=== PATIENT | male | born 1950 | race Caucasian/White ===

== ENCOUNTER 2018-09-13 17:33 | Observation (INO) ==
--- NOTE | 2018-09-13 18:38 | Emergency Department Note ---
Disposition Clinical Impression: Hyponatremia Disposition: Still a Patient Condition: Good General Adult HPI - General Chief complaint: ED General Medical Stated complaint: Multiple complaints Time Seen by Provider: 09/13/18 17:54 Source: patient, family Mode of arrival: ambulatory Limitations: no limitations Nursing Notes Reviewed: Yes Vital Signs Reviewed: Yes - History of Present Illness HPI Narrative: Patient is 67-year-old male presenting to [facility] ED for the complaint of left-sided facial weakness, lightheadedness, difficulty with ambulation, bilateral burning in the lower extremities, as well as burning with urination and defecation. Patient states that the symptoms have been progressively worsening over the last 2 months and are intermittent in nature. The patient states that he has had significant life stressors which he feels may be worsening his current symptoms. Onset (ago): month(s) Location: head, face, neck, genitals, buttocks, lower extremity Radiation: non-radiation Pain Severity: severe Pain Scale: 8 Quality: burning, stabbing Consistency: intermittent Improves with: nothing Worsens with: nothing Associated symptoms: Reports: denies other symptoms - Related Data Allergies Allergy/AdvReac Type Severity Reaction Status Date / Time No Known Allergies Allergy Verified 09/13/18 17:38 All systems ED: reviewed and negative except as stated. Constitutional: Reports: chills, weakness. Denies: fever Cardiovascular: Denies: chest pain Respiratory: Denies: dyspnea Gastrointestinal: Reports: nausea. Denies: abdominal pain, vomiting, hematochezia Genitourinary: Denies: hematuria Neurological: Reports: weakness. Denies: headache, numbness, paresthesias Psychiatric: Reports: as per HPI Endocrine: Reports: as per HPI Hematological/Lymphatic: Reports: as per HPI Allergic/Immunologic: Reports: as per HPI Past Medical History - Past Medical History Medical history: Reports: hyperlipidemia, hypertension, TIA Psychiatric history: Reports: no psych history - Social History Smoking Status: Former smoker Smokeless Tobacco Status: No Alcohol use: Reports: none Drug use: Reports: none Physical Exam - General Limitations: no limitations General appearance: alert, in no apparent distress - Head Head exam: atraumatic, normocephalic - Eye Eye exam: Present: normal appearance, PERRL, EOMI. Absent: scleral icterus, conjunctival injection - Chest Chest inspection: Present: normal inspection, symmetric chest wall rise - Respiratory Respiratory exam: Present: normal lung sounds bilaterally. Absent: respiratory distress, accessory muscle use, prolonged expiratory phase - Cardiovascular Cardiovascular exam: Present: regular rate, normal rhythm, normal heart sounds, +S1, +S2. Absent: +S3, +S4 - Abdominal Exam Abdominal exam: Present: soft, Non-Tender, normal bowel sounds. Absent: distention, guarding, rebound, rigidity - Extremities Exam Extremities exam: Absent: pedal edema - Expanded Lower Extremity Exam Lower leg exam: Absent: swelling, ecchymosis Foot/toe exam: Present: normal inspection (Pulse motor and sensation intact in the 4 extremities) - Neurological Exam Neurological exam: Present: alert, oriented X3, other (Strength equal bilaterally, pulse, motor, and sensation are intact in the 4 extremities, finger to nose testing, pronator drift, and [id number] were normal) - Psychiatric Psychiatric exam: Present: normal affect, normal mood - Skin Skin exam: Present: warm, dry, intact Course Course Narrative: Patient history, review systems and physical exam are concerning for potential TIA/CVA versus vitamin/electrolyte deficiency. CT scan head/brain, CBC, BMP, vitamin B6 level to evaluate for intracranial/blood/electrolyte abnormalities. Vital Signs Temperature 98.1 F 09/13/18 17:37 Pulse Rate 102 09/13/18 17:37 Respiratory Rate 16 09/13/18 17:37 Blood Pressure 148/55 09/13/18 17:37 O2 Sat by Pulse Oximetry 97 09/13/18 17:37 Temperature 98.1 F 09/13/18 17:58 Pulse Rate 93 09/13/18 19:39 Respiratory Rate 16 09/13/18 19:39 Blood Pressure 150/87 09/13/18 19:39 O2 Sat by Pulse Oximetry 98 09/13/18 19:39 Oxygen Delivery Oxygen Delivery Room Air Medical Decision Making - MDM Narrative Medical decision making narrative: Patient CT scan of the head negative for intracranial pathology. Patient c ritical laboratory values showed sodium at 119. This was discussed with patient including possible consequences to hyponatremia. Discussion was had at length with patient regarding medical recommendation to be admitted to inpatient medicine for further observation, workup and treatment. Patient acknowledged his understanding and agreed with the plan. - Medical Records Medical records reviewed: Yes I reviewed the patient's medical records. - Lab Data Lab results reviewed: Yes I reviewed the patient's lab results. Result diagrams: 09/13/18 19:46 09/14/18 08:09 Lab Results 09/13/18 09/13/18 Range/Units 19:46 19:46 WBC 8.9 (4.3-11.1) K/mcL RBC 4.49 (4.19-5.50) M/mcL Hgb 13.3 (12.9-16.9) g/dL Hct 37.8 (37.5-50.1) % MCV 84.2 (83.0-100.0) fL MCH 29.6 (28.0-33.3) pg MCHC 35.2 (31.6-35.5) g/dL RDW 11.9 (11.5-14.5) % Plt Count 337 (140-400) K/mcL MPV 9.6 (9.4-12.4) fL Immature Gran % 0.3 (0-4) % Seg Neutrophils % 80.3 % Lymphocytes % 11.4 % Monocytes % 7.5 % Eosinophils % 0.2 % Basophils % 0.3 % Neutrophils # 7.1 (1.6-8.9) K/mcL Lymphocytes # 1.0 (0.6-4.6) K/mcL Monocytes # 0.7 (0.0-1.3) K/mcL Eosinophils # 0.0 (0.0-0.6) K/mcL Basophils # 0.0 (0.0-0.2) K/mcL Sodium 119 L* (136-145) mEq/L Potassium 3.7 (3.5-5.1) mEq/L Chloride 87 L (98-107) mEq/L Carbon Dioxide 20 L (23-29) mEq/L BUN 14 (8-23) mg/dL Creatinine 0.75 (0.70-1.30) mg/dL Est GFR ( Amer) > 60 (> 60) Est GFR (Non-Af Amer) > 60 (> 60) BUN/Creatinine Ratio 19 (6-26) Glucose 112 H (70-105) mg/dL Calculated Osmolality 249 L (280-300) Calcium 9.5 (8.6-10.3) mg/dL - Radiology Data Radiology results reviewed: Yes I reviewed the patient's radiology results. - EKG Data EKG #1 EKG attestation: Yes I reviewed and interpreted this EKG. EKG results narrative: Patient EKG shows a normal sinus rhythm with a first degree AV block and right bundle branch block with a ventricular rate of 97 bpm. QT/QTc interval of 371/472 respectively and QRS duration of 138 ms. Rate, rhythm, and axis otherwise appear normal. There are no ST segment depressions, elevations, abnormal T-wave inversions or other signs of acute ischemic change. The EKG report performed today is generally consistent with previous EKG performed on February 162013.
--- NOTE | 2018-09-13 19:03 | Emergency Department Note ---
Disposition Clinical Impression: Hyponatremia Disposition: Still a Patient Condition: Good Referrals: Chandana Vasquez MD [Primary Care Provider] - Forms: ED Satisfaction Letter, Work/School Release General Adult HPI - General Chief complaint: ED General Medical Stated complaint: Multiple complaints Time Seen by Provider: 09/13/18 17:54 Source: patient, family Mode of arrival: ambulatory Limitations: no limitations - History of Present Illness Location: head, face, neck, genitals, buttocks, lower extremity Pain Scale: 8 Quality: burning, stabbing Improves with: nothing Worsens with: nothing Associated symptoms: Reports: denies other symptoms - Related Data Allergies Allergy/AdvReac Type Severity Reaction Status Date / Time No Known Allergies Allergy Verified 09/13/18 17:38 Constitutional: Reports: chills, weakness. Denies: fever Cardiovascular: Denies: chest pain Respiratory: Denies: dyspnea Gastrointestinal: Reports: nausea. Denies: abdominal pain, vomiting, hematochezia Genitourinary: Denies: hematuria Neurological: Reports: weakness. Denies: headache, numbness, paresthesias Past Medical History - Past Medical History Medical history: Reports: hyperlipidemia, hypertension, TIA Psychiatric history: Reports: no psych history - Social History Smoking Status: Former smoker Smokeless Tobacco Status: No Alcohol use: Reports: none Drug use: Reports: none Physical Exam - General Limitations: no limitations General appearance: alert, in no apparent distress Course Vital Signs Temperature 98.1 F 09/13/18 17:37 Pulse Rate 102 09/13/18 17:37 Respiratory Rate 16 09/13/18 17:37 Blood Pressure 148/55 09/13/18 17:37 O2 Sat by Pulse Oximetry 97 09/13/18 17:37 Temperature 98.1 F 09/13/18 17:58 Pulse Rate 93 09/13/18 19:39 Respiratory Rate 16 09/13/18 19:39 Blood Pressure 150/87 09/13/18 19:39 O2 Sat by Pulse Oximetry 98 09/13/18 19:39 Oxygen Delivery Oxygen Delivery Room Air Medical Decision Making - MDM Narrative Medical decision making narrative: Patient was found have a sodium level of 119 with no other electrolyte abnormalities. We will start him on normal saline. Patient will need to be admitted. This could help explain some of his neurological symptoms. - Medical Records Medical records reviewed: Yes I reviewed the patient's medical records. - Lab Data Lab results reviewed: Yes I reviewed the patient's lab results. Result diagrams: 09/13/18 19:46 09/13/18 19:46 Lab Results 09/13/18 09/13/18 Range/Units 19:46 19:46 WBC 8.9 (4.3-11.1) K/mcL RBC 4.49 (4.19-5.50) M/mcL Hgb 13.3 (12.9-16.9) g/dL Hct 37.8 (37.5-50.1) % MCV 84.2 (83.0-100.0) fL MCH 29.6 (28.0-33.3) pg MCHC 35.2 (31.6-35.5) g/dL RDW 11.9 (11.5-14.5) % Plt Count 337 (140-400) K/mcL MPV 9.6 (9.4-12.4) fL Immature Gran % 0.3 (0-4) % Seg Neutrophils % 80.3 % Lymphocytes % 11.4 % Monocytes % 7.5 % Eosinophils % 0.2 % Basophils % 0.3 % Neutrophils # 7.1 (1.6-8.9) K/mcL Lymphocytes # 1.0 (0.6-4.6) K/mcL Monocytes # 0.7 (0.0-1.3) K/mcL Eosinophils # 0.0 (0.0-0.6) K/mcL Basophils # 0.0 (0.0-0.2) K/mcL Sodium 119 L* (136-145) mEq/L Potassium 3.7 (3.5-5.1) mEq/L Chloride 87 L (98-107) mEq/L Carbon Dioxide 20 L (23-29) mEq/L BUN 14 (8-23) mg/dL Creatinine 0.75 (0.70-1.30) mg/dL Est GFR ( Amer) > 60 (> 60) Est GFR (Non-Af Amer) > 60 (> 60) BUN/Creatinine Ratio 19 (6-26) Glucose 112 H (70-105) mg/dL Calculated Osmolality 249 L (280-300) Calcium 9.5 (8.6-10.3) mg/dL - Radiology Data Radiology results reviewed: Yes I reviewed the patient's radiology results. Attestation Statement - Attestation Attestation: I examined this patient and my medical decision-making was reviewed with the Resident Physician. I agree with the documented findings, disposition and treatment plan as described except to the extent set forth below. 67-year-old male since emergency room for bilateral leg pain. States he has had pain in his legs for 3-5 months minimum. He describes it as a tingling and numbness from the knees down to the feet. Comes and goes. When asked why he came to the ER today he states it is chronic his legs look that for the pain. He also intermittently states that he has left-sided facial numbness that seems very lateral. He states the pain sometimes in the left shoulder as well as down the midline of the upper back region. On exam, his legs look normal. Pulses intact. There is no rashes. No neuro deficits anywhere. Cranial nerves are intact. Normal cerebellar exam. We will check screening lab work. We will do a CT of the head just to make sure that there is no acute process taking place. I
[2018-09-13 20:00] LABS: Basophils % 0.3 %; Eosinophils % 0.2 %; Hematocrit 37.8 % (37.5-50.1); Hemoglobin 13.3 g/dL (12.9-16.9); Immature Granulocytes % 0.3 % (0-4); Lymphocytes % 11.4 %; Mean Corpuscular HGB Conc 35.2 g/dL (31.6-35.5); Mean Corpuscular Hemoglobin 29.6 pg (28.0-33.3); Mean Corpuscular Volume 84.2 fL (83.0-100.0); Mean Platelet Volume 9.6 fL (9.4-12.4); Monocytes # 0.7 K/mcL (0.0-1.3); Monocytes % 7.5 %; Neutrophils # 7.1 K/mcL (1.6-8.9); Platelet Count 337 K/mcL (140-400); Red Blood Count 4.49 M/mcL (4.19-5.50); Red Cell Distribution Width 11.9 % (11.5-14.5); Segmented Neutrophils % 80.3 %
[2018-09-13 20:30] LABS: BUN/Creatinine Ratio 19 (6-26); Blood Urea Nitrogen 14 mg/dL (8-23); Calcium 9.5 mg/dL (8.6-10.3); Carbon Dioxide 20 mEq/L (23-29); Chloride 87 mEq/L (98-107); Glucose 112 mg/dL (70-105); Osmolality,Calculated 249 (280-300); Potassium 3.7 mEq/L (3.5-5.1); Sodium 119 mEq/L (136-145); eGFR For Non-African Americans > 60 (> 60)
[2018-09-13] MEDS: 0.9 % Sodium Chloride 1,000 ML IVC SCH ×2 (21:18→22:37)
--- NOTE | 2018-09-13 22:35 | Internal Med History&Physical ---
Date of Encounter: 09/13/18 Time of Encounter: 22:32 Internal Medicine - H&P: HPI Chief complaint: fatigue Admitted From: Home Plans for Post Hospital Care: Home History of present illness: Mr. Lozada is a 67 year old male with a history of hypertension, hyperlipidemia and TIAs who presents to the emergency room with a complaint of 2 weeks of increasingly progressive fatigue and generalized malaise. He denies any speci fic complaints such as chest pain or headaches per se however he says over the last 2 weeks he has lost his appetite, he is been nauseated and vomiting intermittently and today had an episode of large volume diarrhea. He does report adherence to his medications in spite of his symptoms. Information obtained from the is that every time he stands up he feels lightheaded and he has lost exercise tolerance now only being able to walk short distances due to fatigue. On arrival here he appeared clinically stable and his hemodynamics were within normal limits. Comprehensive blood work was done which was grossly unremarkable except the finding of a serum sodium of 119. He was then started on IV saline and is admitted for ongoing treatment and management. At this time he says he just feels tired and feels like "crap" but denies fever and chills. He does report having dysuria of recent. I asked him about any new medications over the last 2 weeks which he says he has not had however today he was started on sertraline because he has PCP felt and may be secondary to stress and depression; his symptoms started 2 weeks ago. All systems reviewed and negative except as above. Denies any surgeries in the past. Denies smoking history and illicit drug use. Liver failure in daughter; rest of family history is noncontributory.. Note: The patient states that he will sign himself out from medical care tomorrow morning as his daughter is currently dying in the critical care unit at [facility] from liver cirrhosis and may not live over the next 24 hours but he is willing to stay overnight to try to correct his serum sodium. Past Med Surg Social Fam HX - Past Medical History Medical history: hyperlipidemia, hypertension, TIA Psychiatric history: no psych history - Social History Smoking Status: Former smoker Smokeless Tobacco Status: No Alcohol use: none Drug use: none Internal Medicine - H&P: Meds Buspirone HCl [Buspar] 10 mg PO BID 09/13/18 [History] Lisinopril/Hydrochlorothiazide [Zestoretic 20-25 mg Tablet] 1 tab PO DAILY 09/13/18 [History] Multivit-Min/FA/Lycopen/Lutein [A Thru Z Select Men 50+ Tablet] 1 tab PO DAILY 09/13/18 [History] Pravastatin Sodium [Pravachol] 40 mg PO QPM 09/13/18 [History] Sertraline [Zoloft] 50 mg PO DAILY 09/13/18 [History] Tamsulosin [Flomax] 0.4 mg PO DAILY 09/13/18 [History] Allergy/AdvReac Type Severity Reaction Status Date / Time No Known Allergies Allergy Verified 09/13/18 17:38 All Systems PM: A 10-system review of systems was performed and is negative for pertinent findings except as documented above in the HPI. - Constitutional Vitals: Temp Pulse Resp BP Pulse Ox 98.1 F 93 12 161/91 98 09/13/18 17:58 09/13/18 19:39 09/13/18 21:45 09/13/18 21:45 09/13/18 19:39 Exam: Vitals: Reviewed General: Well-developed white male lying comfortably in bed in no acute distress Skin: Warm and supple HEENT: Slightly dry oral mucous membranes. Mild conjunctivae pallor. Neck: No lymphadenopathy. No JVD. No carotid bruits. No palpable thyroid. Chest: Normal thoracic expansion. Normal breath sounds. Clear to auscultation. Heart: Normal S1 & S2; rhythmic. No rubs or murmurs. Abdomen: Non-distended, soft and non-tender to palpation. No peritoneal reaction. Liver is normal in size. Spleen is not palpable. Extremities: No clubbing, cyanosis or edema. No calf tenderness. Normal distal pulses. Neurological: Awake, alert and oriented to person, place and time. No focal deficits. Psych: Affect appropriate. Internal Med - H&P Results - Labs CBC & Chem 7: 09/13/18 19:46 09/13/18 19:46 Labs: Short CBC 09/13/18 Range/Units 19:46 WBC 8.9 (4.3-11.1) K/mcL Hgb 13.3 (12.9-16.9) g/dL Hct 37.8 (37.5-50.1) % Plt Count 337 (140-400) K/mcL Neutrophils # 7.1 (1.6-8.9) K/mcL BMP 09/13/18 19:46 Sodium 119 L* Potassium 3.7 Chloride 87 L Carbon Dioxide 20 L BUN 14 Creatinine 0.75 Glucose 112 H Calcium 9.5 - Impressions ITS Impressions Head CT 09/13/18 19:00 IMPRESSION: No acute intracranial hemorrhage or mass effect. D/ / Cornelius Schwab MD / Cornelius Schwab MD Interpreting Provider: Cornelius Schwab MD - Assessment and plan (1) Hyponatremia Current Visit: Yes Status: Acute Assessment and plan: Unclear etiology. Spurious hypoNa ruled out with normal glucose. Will check lipids. Concerned for a multifactorial etiology based on poor oral intake over the last 2 weeks and GI losses in addition to using HCTZ. Will obtain urine osm and lytes. Start IV NS. Check BMP q4hrs. (2) Hypertension Current Visit: Yes Status: Acute Assessment and plan: HCTZ discontinued for now. Will continue on lisinopril alone at this time. Qualifiers: Hypertension type: essential hypertension Qualified Code(s): I10 - Essential (primary) hypertension (3) Hyperlipidemia Current Visit: Yes Status: Acute Assessment and plan: Will continue statin therapy. Qualifiers: Qualified Code(s): E78.5 - Hyperlipidemia, unspecified (4) Depression Current Visit: Yes Status: Acute Assessment and plan: Will hold sertraline as it can cause hyponatremia and SIADH. Continue bupropion. Qualifiers: Depression Type: unspecified Qualified Code(s): F32.9 - Major depressive disorder, single episode, unspecified (5) DVT prophylaxis Current Visit: Yes Status: Acute Assessment and plan: SubQ heparin. - Time Spent With Patient Total time spent is greater than 50% in coordination of care (as documented) at patient's floor/unit and/or counseling patient: Greater than 35 minutes
[2018-09-13 22:50] LABS: Bilirubin,Urine Negative (Negative); Blood,Urine Negative (Negative); Clarity,Urine Clear (Clear); Color,Urine Yellow (Yellow); Glucose,Urine (UA) Normal (Normal); Ketones,Urine 80 mg/dL (Negative); Leukocyte Esterase,Urine Negative (Negative); Nitrite,Urine Negative (Negative); PH,Urine 6.5 pH Units (5.0-8.0); Protein,Urine Negative (Neg-Trace); Specific Gravity,Urine 1.014 (1.010-1.025); Urobilinogen,Urine Normal (Normal)
[2018-09-14 00:41] LABS: BUN/Creatinine Ratio 15 (6-26); Blood Urea Nitrogen 11 mg/dL (8-23); Calcium 8.9 mg/dL (8.6-10.3); Carbon Dioxide 20 mEq/L (23-29); Chloride 94 mEq/L (98-107); Chol/HDL Ratio 2.5 (0-4.9); Glucose 113 mg/dL (70-105); Osmolality,Calculated 260 (280-300); Potassium 3.8 mEq/L (3.5-5.1); Sodium 125 mEq/L (136-145); eGFR For Non-African Americans > 60 (> 60)
[2018-09-14] MEDS ORDERED: 0.9 % Sodium Chloride 1,000 ML IVC SCH (01:06)
--- NOTE | 2018-09-14 01:12 | Event Note ---
Date of Encounter: 09/14/18 Time of Encounter: 01:11 Addendum: The patient's orthostatics are positive as evidenced by a drop in systolic to 99mmHg while standing from 151 when supine. His sodium has also increased to 125 from 119. Will decrease the rate of infusion to 75ml/hr from 125. Next BMP will be in 4 hours.
[2018-09-14 05:20] LABS: BUN/Creatinine Ratio 16 (6-26); Blood Urea Nitrogen 10 mg/dL (8-23); Calcium 8.6 mg/dL (8.6-10.3); Carbon Dioxide 20 mEq/L (23-29); Chloride 98 mEq/L (98-107); Glucose 103 mg/dL (70-105); Osmolality,Calculated 265 (280-300); Potassium 3.7 mEq/L (3.5-5.1); Sodium 128 mEq/L (136-145); eGFR For Non-African Americans > 60 (> 60)
[2018-09-14] MEDS ORDERED: *HR* Heparin 5,000 UNIT/ML VIAL SQ SCH (06:00)
[2018-09-14 07:20] VITALS: BP 161/84
--- NOTE | 2018-09-14 08:13 | Electrocardiograph Report ---
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
[2018-09-14 08:47] LABS: BUN/Creatinine Ratio 14 (6-26); Blood Urea Nitrogen 9 mg/dL (8-23); Calcium 8.7 mg/dL (8.6-10.3); Carbon Dioxide 20 mEq/L (23-29); Chloride 98 mEq/L (98-107); Glucose 101 mg/dL (70-105); Osmolality,Calculated 267 (280-300); Potassium 3.8 mEq/L (3.5-5.1); Sodium 129 mEq/L (136-145); eGFR For Non-African Americans > 60 (> 60)
[2018-09-14] MEDS ORDERED: Lisinopril 20 MG TABLET PO SCH (09:00)
--- NOTE | 2018-09-14 10:43 | Internal Med Progress Note ---
Hospitalist Progress Note - Exam Vitals: Temp Pulse Resp BP Pulse Ox 98.1 F 86 19 161/84 97 09/14/18 07:18 09/14/18 07:18 09/14/18 07:18 09/14/18 07:18 09/14/18 07:18 - Assessment and Plan (1) Hyponatremia Current Visit: Yes Status: Acute (2) Depression Current Visit: Yes Status: Acute (3) Hypertension Current Visit: Yes Status: Acute (4) Hyperlipidemia Current Visit: Yes Status: Acute (5) DVT prophylaxis Current Visit: Yes Status: Acute - Time Spent with Patient Total time spent is greater than 50% in coordination of care (as documented) at patient's floor/unit and/or counseling patient: Internal Medicine: Result - Labs CBC & Chem 7: 09/13/18 19:46 09/14/18 04:48 Labs: Short CBC 09/13/18 Range/Units 19:46 WBC 8.9 (4.3-11.1) K/mcL Hgb 13.3 (12.9-16.9) g/dL Hct 37.8 (37.5-50.1) % Plt Count 337 (140-400) K/mcL Neutrophils # 7.1 (1.6-8.9) K/mcL BMP 09/13/18 09/14/18 09/14/18 19:46 00:10 04:48 Sodium 119 L* 125 L 128 L Potassium 3.7 3.8 3.7 Chloride 87 L 94 L 98 Carbon Dioxide 20 L 20 L 20 L BUN 14 11 10 Creatinine 0.75 0.72 0.63 L Glucose 112 H 113 H 103 Calcium 9.5 8.9 8.6 Urine 09/13/18 Range/Units 22:34 Urine Color Yellow (Yellow) Urine Clarity Clear (Clear) Urine pH 6.5 (5.0-8.0) pH Units Ur Specific [place] 1.014 (1.010-1.025) Urine Protein Negative (Neg-Trace) mg/dL Urine Glucose (UA) Normal (Normal) mg/dL - Impressions Impressions Head CT 09/13/18 19:00 IMPRESSION: No acute intracranial hemorrhage or mass effect. D/ / Cornelius Schwab MD / Cornelius Schwab MD Interpreting Provider: Cornelius Schwab MD Consult Discharge Plan - Plan Referrals: Chandana Vasquez MD [Primary Care Provider] - (2) Depression Qualifiers: Depression Type: unspecified Qualified Code(s): F32.9 - Major depressive disorder, single episode, unspecified (3) Hypertension Qualifiers: Hypertension type: essential hypertension Qualified Code(s): I10 - Essential (primary) hypertension (4) Hyperlipidemia Qualifiers: Qualified Code(s): E78.5 - Hyperlipidemia, unspecified
--- NOTE | 2018-09-14 15:05 | Discharge Summary ---
Date of Encounter: 09/14/18 Time of Encounter: 00:00 - Discharge Diagnosis (1) Hyponatremia Priority: Primary Status: Acute Hospital course: Patient is a 67-year-old male with past medical history significant for hypertension, hyperlipidemia, TIAs and recently newly diagnosed depression who presents to the emergency room with a complaint of 2 weeks of increasingly progressive fatigue and generalized malaise. Patient states that over the last 2 weeks he has lost his appetite, he is been nauseated and vomiting intermittently and today had an episode of large volume diarrhea. Patient reported of being started on sertraline for stress and depression; his symptoms started 2 weeks ago. In the ER, patient was found to be hyponatremic with a sodium of 119. She was admitted to medical surgical floor for management of hyponatremia. Patient however after being admitted to the medical floor decided to sign out AGAINST MEDICAL ADVICE. Patient was never seen by myself but was evaluated by nocturnalist. Time spent discussing smoking cessation with patient: 3 to 10 minutes - Time Spent with Patient Total time spent providing and/or coordinating discharge services: - Discharge Medications Home Medications: Buspirone HCl [Buspar] 10 mg PO BID 09/13/18 [History] Lisinopril/Hydrochlorothiazide [Zestoretic 20-25 mg Tablet] 1 tab PO DAILY 09/13/18 [History] Multivit-Min/FA/Lycopen/Lutein [A Thru Z Select Men 50+ Tablet] 1 tab PO DAILY 09/13/18 [History] Pravastatin Sodium [Pravachol] 40 mg PO QPM 09/13/18 [History] Sertraline [Zoloft] 50 mg PO DAILY 09/13/18 [History] Tamsulosin [Flomax] 0.4 mg PO DAILY 09/13/18 [History] Allergies/Adverse Reactions: Allergy/AdvReac Type Severity Reaction Status Date / Time No Known Allergies Allergy Verified 09/13/18 17:38 Date of admission: 09/13/18 21:14 Primary care physician: Chandana Vasquez MD - Constitutional Vitals: Temp Pulse Resp BP Pulse Ox 98.1 F 86 19 161/84 97 09/14/18 07:18 09/14/18 07:18 09/14/18 07:18 09/14/18 07:18 09/14/18 07:18 Exam: none - Patient Status Disposition: Left Against Medical Advice Condition: Good - Discharge Instructions Follow Up With: Chandana Vasquez MD [Primary Care Provider] -
== END 2018-09-14 08:51 | disposition left against medical advice (07) ==
LOC: 2ANU 17:33 → EMEROOARM 17:33 → SUATTDRO 21:14 → 2ANU 22:38
PROVIDERS: ADMIT Internal Medicine; ATTEND Hospitalist

== ENCOUNTER 2018-09-20 11:07 | Inpatient (IN) ==
--- NOTE | 2018-09-20 11:36 | Emergency Department Note ---
Addendum entered and electronically signed by Cheryl Medina 09/20/18 20:51: Original Note: Disposition Clinical Impression: Hyponatremia, Burning sensation of feet Disposition: Admitted As Inpatient Condition: Fair General Adult HPI - General Chief complaint: ED Recheck/Abnormal Lab/Rx Stated complaint: "abnormal labs/low sodium" Time Seen by Provider: 09/20/18 11:13 Source: patient Limitations: no limitations Nursing Notes Reviewed: Yes Vital Signs Reviewed: Yes - History of Present Illness HPI Narrative: Patient's 68-year-old male with history of hypertension who presents the emergency department after obtaining labs ordered by his PCP with significant hyponatremia to 118. Patient was recently admitted for similar lab findings but left AMA as his daughter is dying of liver failure. He does admit some nausea without vomiting, currently resolved as well as bilateral foot tingling and dysuria. He otherwise notes approximately a pound weight loss over the past month as he feels no desire to eat. He states he drinks approximately 3, 16 ounce water bottles per day. He denies current alcoholism that he does have a history in the past. He denies any headache, chest pain, shortness of breath, abdominal pain, hematuria, urinary frequency. Pain Scale: 7 - Related Data Home Medications Medication Instructions Recorded Confirmed Buspirone HCl [Buspar] 10 mg PO BID 09/13/18 09/20/18 Lisinopril/Hydrochlorothiazide 1 tab PO DAILY 09/13/18 09/20/18 [Zestoretic 20-25 mg Tablet] Multivit-Min/FA/Lycopen/Lutein [A 1 tab PO DAILY 09/13/18 09/20/18 Thru Z Select Men 50+ Tablet] Pravastatin Sodium [Pravachol] 40 mg PO QPM 09/13/18 09/20/18 Sertraline [Zoloft] 50 mg PO DAILY 09/13/18 09/13/18 Tamsulosin [Flomax] 0.4 mg PO DAILY 09/13/18 09/20/18 Allergies Allergy/AdvReac Type Severity Reaction Status Date / Time No Known Allergies Allergy Verified 09/20/18 13:59 All systems ED: reviewed and negative except as stated. Review of Systems: As Per HPI Past Medical History - Past Medical History Attestation: Yes The following information was validated with the patient. Source: patient Medical history: Reports: hyperlipidemia, hypertension, TIA Psychiatric history: Reports: no psych history - Social History Smoking Status: Former smoker Smokeless Tobacco Status: No Alcohol use: Reports: none Drug use: Reports: none Physical Exam - General Limitations: no limitations General appearance: alert - Head Head exam: atraumatic, normocephalic - ENT ENT exam: mucous membranes dry - Chest Chest inspection: Present: normal inspection - Respiratory Respiratory exam: Present: normal lung sounds bilaterally. Absent: respiratory distress, accessory muscle use - Cardiovascular Cardiovascular exam: Present: regular rate, normal rhythm, normal heart sounds - Abdominal Exam Abdominal exam: Present: soft, Non-Tender, normal bowel sounds. Absent: tenderness, distention, guarding, rebound, rigidity - Extremities Exam Extremities exam: Present: normal inspection. Absent: pedal edema - Neurological Exam Neurological exam: Present: alert, oriented X3 - Psychiatric Psychiatric exam: Present: normal affect, normal mood - Skin Skin exam: Present: warm, dry, intact Course Course Narrative: Patient with sodium of 118, down from recent draw of 125. He was admitted for similar lab results but left AMA overnight as his daughter is dying of liver failure. Patient denies alcoholism or excessive intake therefore less likely be beer potomania or psychogenic polydipsia. Otherwise patient appears slightly dehydrated. We will obtain a other basic lab work including CBC, UA and he will likely require an admission. We will begin gentle rehydration of normal saline at 100 mils per hour. - Reevaluation(s) Reevaluation #1: Admitting physician, Dr. Diaz reports the patient is now suicidal. He will determine the patient's need for pink slip. We will have sitter placed. Time: 14:17 Vital Signs Temperature 99.2 F 09/20/18 11:10 Pulse Rate 103 09/20/18 11:10 Respiratory Rate 16 09/20/18 11:10 Blood Pressure 129/73 09/20/18 11:10 O2 Sat by Pulse Oximetry 98 09/20/18 11:10 Temperature 99.2 F 09/20/18 11:19 Pulse Rate 104 09/20/18 14:11 Respiratory Rate 21 09/20/18 14:11 Blood Pressure 140/84 09/20/18 14:11 O2 Sat by Pulse Oximetry 98 09/20/18 14:11 Oxygen Delivery Oxygen Delivery Room Air Medical Decision Making - MDM Narrative Medical decision making narrative: Patient's hyponatremic without obvious source at this time. Appears slightly hypovolemic therefore IV hydration started with 100 mL normal saline per hour. At this point no need for hypertonic saline as the patient has no history of seizures and is not currently seizing. Denies alcohol or excessive water intake. CBC and UA unremarkable. Patient will require admission for continued evaluation and monitoring of sodium correction. Patient agrees with and understands course of treatment plan including plan for admission. Discussed ca se with hospitalist, Dr. Tripathi who has accepted the patient for admission. Will obtain CXR prior to going to the floor. All questions answered. - Medical Records Medical records reviewed: Yes I reviewed the patient's medical records. - Lab Data Lab results reviewed: Yes I reviewed the patient's lab results. Result diagrams: 09/20/18 11:53 Lab Results 09/20/18 09/20/18 Range/Units 11:53 12:23 WBC 8.2 (4.3-11.1) K/mcL RBC 4.44 (4.19-5.50) M/mcL Hgb 13.1 (12.9-16.9) g/dL Hct 36.1 L (37.5-50.1) % MCV 81.3 L (83.0-100.0) fL MCH 29.5 (28.0-33.3) pg MCHC 36.3 H (31.6-35.5) g/dL RDW 11.9 (11.5-14.5) % Plt Count 324 (140-400) K/mcL MPV 9.9 (9.4-12.4) fL Immature Gran % 0.2 (0-4) % Seg Neutrophils % 77.1 % Lymphocytes % 13.8 % Monocytes % 8.3 % Eosinophils % 0.2 % Basophils % 0.4 % Neutrophils # 6.3 (1.6-8.9) K/mcL Lymphocytes # 1.1 (0.6-4.6) K/mcL Monocytes # 0.7 (0.0-1.3) K/mcL Eosinophils # 0.0 (0.0-0.6) K/mcL Basophils # 0.0 (0.0-0.2) K/mcL Urine Color Yellow (Yellow) Urine Clarity Clear (Clear) Urine pH 6.5 (5.0-8.0) pH Units Ur Specific [place] 1.009 L (1.010-1.025) Urine Protein Negative (Neg-Trace) mg/dL Urine Glucose (UA) Normal (Normal) mg/dL Urine Ketones 40 H (Negative) mg/dL Urine Blood Negative (Negative) Urine Nitrite Negative (Negative) Urine Bilirubin Negative (Negative) Urine Urobilinogen Normal (Normal) mg/dL Ur Leukocyte Esterase Negative (Negative) Ur Culture Indicated? NO (NO) - EKG Data EKG #1 EKG attestation: Yes I reviewed and interpreted this EKG. EKG results narrative: Sinus tachycardia rate of 105. KS 204, QRS 136, QT 360, QTC 476. Left axis. Inverted T waves in aVR, V1. No evidence of ST elevation. When compared with 09/13/2018 there is no significant difference.
[2018-09-20] MEDS: 0.9 % Sodium Chloride 1,000 ML IVC SCH ×2 (12:01→16:58)
[2018-09-20 12:22] LABS: Basophils % 0.4 %; Eosinophils % 0.2 %; Hematocrit 36.1 % (37.5-50.1); Hemoglobin 13.1 g/dL (12.9-16.9); Immature Granulocytes % 0.2 % (0-4); Lymphocytes # 1.1 K/mcL (0.6-4.6); Lymphocytes % 13.8 %; Mean Corpuscular HGB Conc 36.3 g/dL (31.6-35.5); Mean Corpuscular Hemoglobin 29.5 pg (28.0-33.3); Mean Corpuscular Volume 81.3 fL (83.0-100.0); Mean Platelet Volume 9.9 fL (9.4-12.4); Monocytes # 0.7 K/mcL (0.0-1.3); Monocytes % 8.3 %; Neutrophils # 6.3 K/mcL (1.6-8.9); Platelet Count 324 K/mcL (140-400); Red Blood Count 4.44 M/mcL (4.19-5.50); Red Cell Distribution Width 11.9 % (11.5-14.5); Segmented Neutrophils % 77.1 %
[2018-09-20 12:49] LABS: Bilirubin,Urine Negative (Negative); Blood,Urine Negative (Negative); Clarity,Urine Clear (Clear); Color,Urine Yellow (Yellow); Glucose,Urine (UA) Normal (Normal); Ketones,Urine 40 mg/dL (Negative); Leukocyte Esterase,Urine Negative (Negative); Nitrite,Urine Negative (Negative); PH,Urine 6.5 pH Units (5.0-8.0); Protein,Urine Negative (Neg-Trace); Specific Gravity,Urine 1.009 (1.010-1.025); Urobilinogen,Urine Normal (Normal)
--- NOTE | 2018-09-20 13:03 | Emergency Department Note ---
Disposition Clinical Impression: Hyponatremia Disposition: Admitted As Inpatient Forms: ED Satisfaction Letter General Adult HPI - General Chief complaint: ED Recheck/Abnormal Lab/Rx Stated complaint: "abnormal labs/low sodium" Time Seen by Provider: 09/20/18 11:13 Source: patient Limitations: no limitations - History of Present Illness Pain Scale: 7 - Related Data Home Medications Medication Instructions Recorded Confirmed Buspirone HCl [Buspar] 10 mg PO BID 09/13/18 09/13/18 Lisinopril/Hydrochlorothiazide 1 tab PO DAILY 09/13/18 09/13/18 [Zestoretic 20-25 mg Tablet] Multivit-Min/FA/Lycopen/Lutein [A 1 tab PO DAILY 09/13/18 09/13/18 Thru Z Select Men 50+ Tablet] Pravastatin Sodium [Pravachol] 40 mg PO QPM 09/13/18 09/13/18 Sertraline [Zoloft] 50 mg PO DAILY 09/13/18 09/13/18 Tamsulosin [Flomax] 0.4 mg PO DAILY 09/13/18 09/13/18 Allergies Allergy/AdvReac Type Severity Reaction Status Date / Time No Known Allergies Allergy Verified 09/20/18 11:11 Past Medical History - Past Medical History Medical history: Reports: hyperlipidemia, hypertension, TIA Psychiatric history: Reports: no psych history - Social History Smoking Status: Former smoker Smokeless Tobacco Status: No Alcohol use: Reports: none Drug use: Reports: none Physical Exam - General Limitations: no limitations General appearance: alert Course Vital Signs Temperature 99.2 F 09/20/18 11:10 Pulse Rate 103 09/20/18 11:10 Respiratory Rate 16 09/20/18 11:10 Blood Pressure 129/73 09/20/18 11:10 O2 Sat by Pulse Oximetry 98 09/20/18 11:10 Temperature 99.2 F 09/20/18 11:19 Pulse Rate 112 09/20/18 12:38 Respiratory Rate 16 09/20/18 12:38 Blood Pressure 156/88 09/20/18 12:38 O2 Sat by Pulse Oximetry 100 09/20/18 12:38 Oxygen Delivery Oxygen Delivery Room Air Medical Decision Making - Lab Data Result diagrams: 09/20/18 11:53 Lab Results 09/20/18 09/20/18 Range/Units 11:53 12:23 WBC 8.2 (4.3-11.1) K/mcL RBC 4.44 (4.19-5.50) M/mcL Hgb 13.1 (12.9-16.9) g/dL Hct 36.1 L (37.5-50.1) % MCV 81.3 L (83.0-100.0) fL MCH 29.5 (28.0-33.3) pg MCHC 36.3 H (31.6-35.5) g/dL RDW 11.9 (11.5-14.5) % Plt Count 324 (140-400) K/mcL MPV 9.9 (9.4-12.4) fL Immature Gran % 0.2 (0-4) % Seg Neutrophils % 77.1 % Lymphocytes % 13.8 % Monocytes % 8.3 % Eosinophils % 0.2 % Basophils % 0.4 % Neutrophils # 6.3 (1.6-8.9) K/mcL Lymphocytes # 1.1 (0.6-4.6) K/mcL Monocytes # 0.7 (0.0-1.3) K/mcL Eosinophils # 0.0 (0.0-0.6) K/mcL Basophils # 0.0 (0.0-0.2) K/mcL Urine Color Yellow (Yellow) Urine Clarity Clear (Clear) Urine pH 6.5 (5.0-8.0) pH Units Ur Specific [place] 1.009 L (1.010-1.025) Urine Protein Negative (Neg-Trace) mg/dL Urine Glucose (UA) Normal (Normal) mg/dL Urine Ketones 40 H (Negative) mg/dL Urine Blood Negative (Negative) Urine Nitrite Negative (Negative) Urine Bilirubin Negative (Negative) Urine Urobilinogen Normal (Normal) mg/dL Ur Leukocyte Esterase Negative (Negative) Ur Culture Indicated? NO (NO) Attestation Statement - Attestation Attestation: I examined this patient and my medical decision-making was reviewed with the Resident Physician. I agree with the documented findings, disposition and treatment plan as described except to the extent set forth below. 68 year old male presents to ED with complaints of abnormal labs with a sodium of 118. His baseline is at 126 and states that he has bene low in the past and was most recently admitted to the hospital for this condition and left AMA because his daughter is in ciritical condition and dying. Luc[facility] will be admitted to the [facility]. He denies etoh, seizures, nausea/vomitting, hEADACHE, and or AMS.
[2018-09-20] MEDS ORDERED: *HR* Promethazine 25 MG/ML VIAL IVP PRN (13:59)
[2018-09-20] MEDS ORDERED: Ondansetron 4 MG/2 ML VIAL IVP PRN (13:59)
[2018-09-20] MEDS ORDERED: traMADol 50 MG TABLET PO PRN (13:59)
[2018-09-20] MEDS ORDERED: Naloxone 0.4 MG/ML INJ IVP PRN (13:59)
--- NOTE | 2018-09-20 14:44 | Internal Med History&Physical ---
Date of Encounter: 09/20/18 Time of Encounter: 14:00 Internal Medicine - H&P: HPI Chief complaint: Generalized weakness and lethargic Admitted From: Emergency Dept Plans for Post Hospital Care: Home History of present illness: Mr. Lozada is a 68 year old male with known past medical history of depression, hypertension, hyperlipidemia and TIAs who was recently admitted in this hospital for severe hyponatremia due to dehydration who left against medical advice since he has to take care of his dying daughter. Today his primary care doctor did check his BNP his sodium came back as 118, patient was sent to ER for further care. I talked to the patient in the ER he did complaining about being lethargic weak and tired all the time from last couple of weeks. His oral intake also diminished. Feeling nauseated but denied any vomiting since. He he does look severely depressed, during my conversation he suddenly became tearful about his daughter's situation. Patient did mention he had suicidal ideation's couple of times within last one week with a plan killing himself by shooting with the gun. He denied any suicidal though at the moment. Past Med Surg Social Fam HX - Past Medical History Medical history: hyperlipidemia, hypertension, TIA Psychiatric history: no psych history - Social History Smoking Status: Former smoker Smokeless Tobacco Status: No Alcohol use: none Drug use: none - Family History Mother Adopted: No Living Status: Hx Family Cardiac Disorders: Yes Father Adopted: No Living Status: Hx Family Cardiac Disorders: Yes Internal Medicine - H&P: Meds Buspirone HCl [Buspar] 10 mg PO BID 09/13/18 [History] Lisinopril/Hydrochlorothiazide [Zestoretic 20-25 mg Tablet] 1 tab PO DAILY 09/13/18 [History] Multivit-Min/FA/Lycopen/Lutein [A Thru Z Select Men 50+ Tablet] 1 tab PO DAILY 09/13/18 [History] Pravastatin Sodium [Pravachol] 40 mg PO QPM 09/13/18 [History] Sertraline [Zoloft] 50 mg PO DAILY 09/13/18 [History] Tamsulosin [Flomax] 0.4 mg PO DAILY 09/13/18 [History] Allergy/AdvReac Type Severity Reaction Status Date / Time No Known Allergies Allergy Verified 09/20/18 13:59 All Systems PM: A 10-system review of systems was performed and is negative for pertinent findings except as documented above in the HPI. Review of systems: All the systems are reviewed everything is benign except the systems and symptoms I mentioned in the history of present illness - Constitutional Vitals: Temp Pulse Resp BP Pulse Ox 99.2 F 104 21 140/84 98 09/20/18 11:19 09/20/18 14:11 09/20/18 14:11 09/20/18 14:11 09/20/18 14:11 General appearance: Present: A&O X 3, no acute distress, answers questions appropriately Exam: See below - Head Head exam: Present: atraumatic, normal inspection - Neck Neck exam general surgery: Present: supple - Respiratory Respiratory exam: Present: decreased breath sounds. Absent: rales, respiratory distress, rhonchi, wheezes - Cardiovascular Cardiovascular exam: Present: RRR, +S1, +S2. Absent: tachycardia - GI/Abdominal GI/Abdominal exam: Present: normal bowel sounds, soft. Absent: rebound, rigid, tenderness - Extremities Exam Extremities exam: Absent: calf tenderness, pedal edema, tenderness - Back Exam Back exam: Absent: CVA tenderness (L), CVA tenderness (R) - Neurological Exam Neurological exam: Present: alert, oriented X3 - Psychiatric Psychiatric exam: Present: depressed, flat affect, suicidal ideation. Absent: homicidal ideation Internal Med - H&P Results - Labs CBC & Chem 7: 09/20/18 11:53 Labs: Short CBC 09/20/18 Range/Units 11:53 WBC 8.2 (4.3-11.1) K/mcL Hgb 13.1 (12.9-16.9) g/dL Hct 36.1 L (37.5-50.1) % Plt Count 324 (140-400) K/mcL Neutrophils # 6.3 (1.6-8.9) K/mcL Urine 09/20/18 Range/Units 12:23 Urine Color Yellow (Yellow) Urine Clarity Clear (Clear) Urine pH 6.5 (5.0-8.0) pH Units Ur Specific [place] 1.009 L (1.010-1.025) Urine Protein Negative (Neg-Trace) mg/dL Urine Glucose (UA) Normal (Normal) mg/dL - Impressions ITS Impressions Chest X-Ray 09/20/18 13:37 IMPRESSION: No acute cardiopulmonary disease D/ / Carlos Eduardo Varela MD / Carlos Eduardo Varela MD Interpreting Provider: Carlos Eduardo Varela MD - Assessment and plan (1) Hyponatremia Current Visit: Yes Status: Acute Assessment and plan: Admit the patient into Tele his hyponatremia due to dehydration, hypovolemia as well as medication side effect with hydrochlorothiazide will check sodium level Q 6hr will check serum osmolality, urine osmolality and urine sodium started him on gentle IV hydration with normal saline @ 100 cc/hr our goal of sodium correction at 0.5 meq/hr, but not more than 8-10 meq/day consulted nephrology (2) Depression with suicidal ideation Current Visit: Yes Status: Acute Assessment and plan: Does have major depression did mention about suicidal ideation with a plan at home consulted psychiatric placed him 1: 1 sitter suicidal precautions since he left AMA in the past will do pink slip on him resumed home medication BuSpar, and Zoloft which was recently started by his PCP Dr. Kinsey (3) Hyperlipidemia Current Visit: No Status: Acute Assessment and plan: Resumed home medication Qualifiers: Qualified Code(s): E78.5 - Hyperlipidemia, unspecified (4) Hypertension Current Visit: No Status: Acute Assessment and plan: Stable blood pressure continue lisinopril holding hydrochlorothiazide Qualifiers: Hypertension type: essential hypertension Qualified Code(s): I10 - Essent ial (primary) hypertension (5) DVT prophylaxis Current Visit: No Status: Acute Assessment and plan: On Lovenox SQ injection - Time Spent With Patient Total time spent is greater than 50% in coordination of care (as documented) at patient's floor/unit and/or counseling patient:
[2018-09-20] MEDS ORDERED: Simethicone 80 MG TAB.CHEW PO ONE (19:48)
[2018-09-20] MEDS: Acetaminophen 325 MG TABLET PO PRN (23:56)
[2018-09-20] MEDS: *HR* HYDROcodone/Acet 5/325 mg TABLET PO PRN (23:56)
[2018-09-21 02:21] LABS: BUN/Creatinine Ratio 19 (6-26); Blood Urea Nitrogen 12 mg/dL (8-23); Calcium 9.1 mg/dL (8.6-10.3); Carbon Dioxide 20 mEq/L (23-29); Chloride 92 mEq/L (98-107); Chol/HDL Ratio 2.2 (0-4.9); Cholesterol 93 mg/dL (< 200); Glucose 96 mg/dL (70-105); HDL Cholesterol 42 mg/dL (40-59); LDL Cholesterol,Calculated 38 mg/dL (0-99); Magnesium 1.5 mg/dL (1.6-2.6); Osmolality,Calculated 260 (280-300); Potassium 3.4 mEq/L (3.5-5.1); Sodium 125 mEq/L (136-145); Triglycerides 65 mg/dL (< 150); eGFR For Non-African Americans > 60 (> 60)
[2018-09-21] MEDS: 0.9 % Sodium Chloride 1,000 ML IVC SCH ×2 (03:17→13:34)
[2018-09-21] MEDS: Acetaminophen 325 MG TABLET PO PRN (06:50)
[2018-09-21] MEDS: *HR* HYDROcodone/Acet 5/325 mg TABLET PO PRN ×2 (06:50→22:03)
[2018-09-21] MEDS: Lisinopril 20 MG TABLET PO SCH (09:13)
[2018-09-21] MEDS: Multivit/Ca/Min/Fe/FA 1 TAB TABLET PO SCH (09:13)
--- NOTE | 2018-09-21 13:07 | Consult Note ---
Date of Encounter: 09/21/18 Time of Encounter: 11:30 Assessment & Recommendation (1) Depression Current visit: No Status: Acute Qualifiers: Depression Type: major depressive disorder Major depression recurrence: single episode Active/Remission status: currently active Major depression episode severity: severe Psychotic features: without psychotic features (2) Depression with suicidal ideation Current visit: Yes Status: Acute History of Present Illness Patient: new to practice Requesting Physician: Paulette Tripathi MD Reason for consult: depressed History of present illness: Pt is a 68 yo ,, male, who presents for depression and anxiety . Pt noted he currently lives in [place] with my sister and my niece. Pt noted recent exacerbation of depression. Pt states "my daughter is dying of liver cancer....I just feel depressed." Pt agreed to start aripiprazole. Pt noted "I do feel a little better but this situation is hard." I feel safe and comfortable on the unit. Pt denied any side effects to current medications. Pt was in agreement with current treatment plan. Pt noted that he is doing al right today. Pt noted he slept okay. Pt noted his appetite is its down. Pt rated his depression a 10, on a scale of zero to ten with ten being the worst and zero being none. Pt rate his anxiety a 0, on the same scale. Pt denied any auditory or visual hallucinations. Pt denied any current thoughts to harm himself or anyone else. Pt denied any inpt psychiatric hospitalizations. Pt denied any previous suicide attempts. Pt denied any family hx of suicides. PT denied any family mental health hx. Pt denied HEP C Seizure, TBI or HIV. No TD noted, AIMS=0 Assessment/Plan 1.Interval hx 2.Continue current medications 3.Review current labs 4.Pt had an opportunity to ask questions and discuss current treatment plan. 5.Supportive therapy was provided 6.Pt encouraged to consider group or individual therapy 7.Pt was in agreement with treatment plan. 8.Pt was educated on the risks benefits and side effects of current medications. 9. Start abilify 2 mg PO QHS for mood Pt was educated on the risks benefits and side effects including no medications 10. D/C sitter CC: Paulette Tripathi MD Past Med Surg Social Fam HX - Past Medical History Medical history: hyperlipidemia, hypertension, TIA - Past Psychiatric History Psychiatric history: Reports: depression Family psychiatric history: No Family History of Suicide: None - Social History Smoking Status: Former smoker Smokeless Tobacco Status: No Alcohol use: none Drug use: none - Family History Mother Adopted: No Living Status: Hx Family Cardiac Disorders: Yes Father Adopted: No Living Status: Hx Family Cardiac Disorders: Yes Medications & Allergies Buspirone HCl [Buspar] 10 mg PO BID 09/13/18 [History] Lisinopril/Hydrochlorothiazide [Zestoretic 20-25 mg Tablet] 1 tab PO DAILY 09/13/18 [History] Multivit-Min/FA/Lycopen/Lutein [A Thru Z Select Men 50+ Tablet] 1 tab PO DAILY 09/13/18 [History] Pravastatin Sodium [Pravachol] 40 mg PO QPM 09/13/18 [History] Sertraline [Zoloft] 50 mg PO DAILY 09/13/18 [History] Tamsulosin [Flomax] 0.4 mg PO DAILY 09/13/18 [History] Allergy/AdvReac Type Severity Reaction Status Date / Time No Known Allergies Allergy Verified 09/20/18 13:59 Review of Systems Constitutional: Denies: fever, chills, weakness, weight change Eyes: Denies: eye pain, vision change Ears, Nose, Throat: Denies: ear pain, throat pain, dental pain, hearing loss, congestion Cardiovascular: Denies: chest pain, palpitations, dyspnea on exertion Respiratory: Denies: cough, dyspnea, wheezes Gastrointestinal: Denies: abdominal pain, nausea, vomiting, diarrhea, constipation Genitourinary male: Reports: urgency, dysuria. Denies: frequency, genital lesions Musculoskeletal: Denies: joint swelling, joint pain Integumentary: Denies: rash, lesions, pruritus Neurological: Denies: headache, weakness, numbness, memory loss Psychiatric: Reports: depression, abnormal sleep pattern, suicidal ideation Endocrine: Denies: fatigue, heat or cold intolerance Hematologic/Lymphatic: Denies: easy bruising, lymphadenopathy Allergic/Immunologic: Denies: urticaria, itchy eyes Psychiatry Exam - Constitutional Vitals: Temp Pulse Resp BP Pulse Ox 98.2 F 95 18 124/70 96 09/21/18 11:00 09/21/18 11:00 09/21/18 11:00 09/21/18 11:00 09/21/18 11:00 General appearance: age & developmentally appropriate, well-groomed, well- nourished - Musculoskeletal Gait: normal Station: relaxed Strength & Tone: normal for patient - Psychiatric Patient Orientation: Yes Person, Yes Time, Yes Place Level of alertness: Alert Behavior: calm, cooperative Psychomotor activity: Normal Eye Contact: Maintains Eye Contact Mood Description: Depressed Affect description: congruent with mood, full range Speech Volume: Normal Speech pattern: normal rate, normal rhythm, normal tone, fluent, spontaneous Language & Vocabulary: consistent with education Thought Process: Linear, Goal Oriented Thought Content: No Suicidal ideation, No Homicidal ideation, No Overt delusions Perceptual Disturbances: No Auditory hallucinations, No Visual hallucinations Attention Span Ability: Capable of Focused Attention Memory Description: Grossly Intact Patient Reliability: Reliable Historian Fund of knowledge: Yes abstraction ability, Yes aware of current events Intelligence Estimate: Average Judgment: Limited Insight: Partial Results - Labs Labs: Laboratory Last Values WBC 8.2 K/mcL (4.3-11.1) 09/20/18 11:53 RBC 4.44 M/mcL (4.19-5.50) 09/20/18 11:53 Hgb 13.1 g/dL (12.9-16.9) 09/20/18 11:53 Hct 36.1 % (37.5-50.1) L 09/20/18 11:53 MCV 81.3 fL (83.0-100.0) L 09/20/18 11:53 MCH 29.5 pg (28.0-33.3) 09/20/18 11:53 MCHC 36.3 g/dL (31.6-35.5) H 09/20/18 11:53 RDW 11.9 % (11.5-14.5) 09/20/18 11:53 Plt Count 324 K/mcL (140-400) 09/20/18 11:53 MPV 9.9 fL (9.4-12.4) 09/20/18 11:53 Immature Gran % 0.2 % (0-4) 09/20/18 11:53 Seg Neutrophils % 77.1 % 09/20/18 11:53 Lymphocytes % 13.8 % 09/20/18 11:53 Monocytes % 8.3 % 09/20/18 11:53 Eosinophils % 0.2 % 09/20/18 11:53 Basophils % 0.4 % 09/20/18 11:53 Neutrophils # 6.3 K/mcL (1.6-8.9) 09/20/18 11:53 Lymphocytes # 1.1 K/mcL (0.6-4.6) 09/20/18 11:53 Monocytes # 0.7 K/mcL (0.0-1.3) 09/20/18 11:53 Eosinophils # 0.0 K/mcL (0.0-0.6) 09/20/18 11:53 Basophils # 0.0 K/mcL (0.0-0.2) 09/20/18 11:53 Sodium 125 mEq/L (136-145) L 09/21/18 08:10 Potassium 3.4 mEq/L (3.5-5.1) L 09/21/18 01:45 Chloride 92 mEq/L (98-107) L 09/21/18 01:45 Carbon Dioxide 20 mEq/L (23-29) L 09/21/18 01:45 BUN 12 mg/dL (8-23) 09/21/18 01:45 Creatinine 0.63 mg/dL (0.70-1.30) L 09/21/18 01:45 Est GFR ( Amer) > 60 (> 60) 09/21/18 01:45 Est GFR (Non-Af Amer) > 60 (> 60) 09/21/18 01:45 BUN/Creatinine Ratio 19 (6-26) 09/21/18 01:45 Glucose 96 mg/dL (70-105) 09/21/18 01:45 Serum Osmolality 253 mOsm/kg (280-300) L 09/20/18 14:41 Calculated Osmolality 260 (280-300) L 09/21/18 01:45 Calcium 9.1 mg/dL (8.6-10.3) 09/21/18 01:45 Magnesium 1.5 mg/dL (1.6-2.6) L 09/21/18 01:45 B-Natriuretic Peptide 43 pg/mL (Less than 100) 09/21/18 01:45 Triglycerides 65 mg/dL (< 150) 09/21/18 01:45 Cholesterol 93 mg/dL (< 200) 09/21/18 01:45 LDL Cholesterol, Calc 38 mg/dL (0-99) 09/21/18 01:45 VLDL Cholesterol, Calc 13 mg/dL (< 31) 09/21/18 01:45 HDL Cholesterol 42 mg/dL (40-59) 09/21/18 01:45 Cholesterol/HDL Ratio 2.2 (0-4.9) 09/21/18 01:45 Urine Color Yellow (Yellow) 09/20/18 12:23 Urine Clarity Clear (Clear) 09/20/18 12:23 Urine pH 6.5 pH Units (5.0-8.0) 09/20/18 12:23 Ur Specific [place] 1.009 (1.010-1.025) L 09/20/18 12:23 Urine Protein Negative mg/dL (Neg-Trace) 09/20/18 12:23 Urine Glucose (UA) Normal mg/dL (Normal) 09/20/18 12:23 Urine Ketones 40 mg/dL (Negative) H 09/20/18 12:23 Urine Blood Negative (Negative) 09/20/18 12:23 Urine Nitrite Negative (Negative) 09/20/18 12:23 Urine Bilirubin Negative (Negative) 09/20/18 12:23 Urine Urobilinogen Normal mg/dL (Normal) 09/20/18 12:23 Ur Leukocyte Esterase Negative (Negative) 09/20/18 12:23 Ur Culture Indicated? NO (NO) 09/20/18 12:23 Urine Osmolality 267 mOsm/kg (300-1090) L 09/20/18 16:30 Urine Sodium 63.5 mEq/L 09/20/18 16:30 - Impressions Impressions Chest X-Ray 09/20/18 13:37 IMPRESSION: No acute cardiopulmonary disease D/ / Carlos Eduardo Varela MD / Carlos Eduardo Varela MD Interpreting Provider: Carlos Eduardo Varela MD Consult Discharge Plan - Plan Additional Instructions: [facility] D/C s itter Referrals: Chandana Vasquez MD [Primary Care Provider] -
--- NOTE | 2018-09-21 13:25 | Internal Med Progress Note ---
Hospitalist Progress Note - Encounter Date of Encounter: 09/21/18 Time of Encounter: 09:00 - Subjective Interval History: Mr. Lozada is a 68 year old male with known past medical history of depression, hypertension, hyperlipidemia and TIAs who was recently admitted in this hospital for severe hyponatremia due to dehydration who left against medical advice since he has to take care of his dying daughter. Pt's primary care doctor did check his BMPP his sodium came back as 118, patient was sent to ER for further care. Patient did mention he had suicidal ideation's couple of times within last one week with a plan killing himself by shooting with the gun. Pt was admitted in the hospital and started on IV hydration. He was also placed on 1: 1 sitter. He is alert, awake and O x 3. States he is feeling little better today, however still feels so depressed, did not sleep well last night. He denied any suicidal though at the moment. - Exam Vitals: Temp Pulse Resp BP Pulse Ox 98.2 F 95 18 124/70 96 09/21/18 11:00 09/21/18 11:00 09/21/18 11:00 09/21/18 11:00 09/21/18 11:00 Exam: Gen: Alert, awake, Oriented to time,place and person Chest: Diminished breath sounds B/L, No wheezing, No crackles, No rales Heart: S1S2+ RRR No murmurs Abd: Soft, NT, BS +, No organomegaly Ext: No edema, pulses are palpable, No calf tenderness Neuro : Benign findings Skin: No rash. Psych: Depressed - Assessment and Plan (1) Hyponatremia Current Visit: Yes Status: Acute Assessment and Plan: his hyponatremia due to dehydration, hypovolemia as well as medication side effect with hydrochlorothiazide His sodium improving slowly.. this morning @ 125 Cont sodium level Q 6hr Cont IVF with normal saline @ 100 cc/hr our goal of sodium correction at 0.5 meq/hr, but not more than 8-10 meq/day consulted nephrology (2) Depression with suicidal ideation Current Visit: Yes Status: Acute Assessment and Plan: Does have major depression did mention about suicidal ideation with a plan at home Denied any suicidal ideation now Psych consulted.. Who recommend to start pt on abilify cont Zoloft and Buspar too (3) Hyperlipidemia Current Visit: No Status: Acute Assessment and Plan: Resumed home medication (4) Hypertension Current Visit: No Status: Acute Assessment and Plan: Stable blood pressure continue lisinopril holding hydrochlorothiazide (5) DVT prophylaxis Current Visit: No Status: Acute Assessment and Plan: On Lovenox SQ injection - Time Spent with Patient Total time spent is greater than 50% in coordination of care (as documented) at patient's floor/unit and/or counseling patient: Internal Medicine: Result - Labs CBC & Chem 7: 09/20/18 11:53 09/21/18 08:10 Labs: BMP 09/20/18 09/20/18 09/21/18 14:41 19:35 01:45 Sodium 121 L 122 L 125 L Potassium Chloride Carbon Dioxide BUN Creatinine Glucose Calcium 09/21/18 09/21/18 01:45 08:10 Sodium 125 L 125 L Potassium 3.4 L Chloride 92 L Carbon Dioxide 20 L BUN 12 Creatinine 0.63 L Glucose 96 Calcium 9.1 - Impressions Impressions Chest X-Ray 09/20/18 13:37 IMPRESSION: No acute cardiopulmonary disease D/ / Carlos Eduardo Varela MD / Carlos Eduardo Varela MD Interpreting Provider: Carlos Eduardo Varela MD Consult Discharge Plan - Plan Additional Instructions: [facility] D/C sitter Referrals: Chandana Vasquez MD [Primary Care Provider] - (3) Hyperlipidemia Qualifiers: Qualified Code(s): E78.5 - Hyperlipidemia, unspecified (4) Hypertension Qualifiers: Hypertension type: essential hypertension Qualified Code(s): I10 - Essential (primary) hypertension
[2018-09-21 14:29] LABS: Uric Acid 6.7 mg/dL (2.3-7.6)
[2018-09-21 14:33] LABS: Thyroid Stimulating Hormone 0.452 mcIU/mL (0.340-5.600)
--- NOTE | 2018-09-21 15:14 | Nephrology Consult Note ---
Addendum entered and electronically signed by Lakhwinder Cates MD 09/22/18 00:26: I examined this patient and discussed the medical decision-making with SOHAN Cazares09/21/2018. I agree with the documented findings, disposition and treatment plan as described except to the extent set forth below. Original Note: Date of Encounter: 09/21/18 Time of Encounter: 15:12 Assessment and Plan (1) Hyponatremia Current Visit: Yes Status: Acute Initial NA was 121 and is now 127. Continue IVF. May add Sodium Chloride tabs tomorrow. Regular diet with liberalized salt. (2) Depression Current Visit: No Status: Acute Per psychiatry. Qualifiers: Depression Type: major depressive disorder Major depression recurrence: single episode Active/Remission status: currently active Major depression episode severity: severe Psychotic features: without psychotic features Qualified Code(s): F32.2 - Major depressive disorder, single episode, severe without psychotic features (3) Hyperlipidemia Current Visit: No Status: Acute Per primary. Qualifiers: Qualified Code(s): E78.5 - Hyperlipidemia, unspecified (4) Hypertension Current Visit: No Status: Acute Stable, 124/70. Qualifiers: Hypertension type: essential hypertension Qualified Code(s): I10 - Essential (primary) hypertension History of Present Illness - Reason for Consult Consult date: 09/21/18 hyponatremia - Chief Complaint abnormal labs - History of Present Illness Mr. Lozada is a 68 year old male who presented to ED for abnormal labs. Pt was recently admitted for NA of 118, however he left AMA to take care of his sick daughter. Initial NA was 121 and is now 127. Serum Osmo was 253, urine osmo 267. TSH and random cortisol unremarkable. Pt's NA has been low chronically for some time. Pt's NA is correctly nicely, continue IVF. The patient appeared startled when I walked in the room, and answered "yes" to every question. He then simply started answering no. Pt does appear A/O x 3, but is a poor historian. When asked if he has ever been told he has had low Sodium, he states yes, but he has never followed up for it. Pt does tell me he has been having trouble urinating for a few weeks. The EMR does reflect a straight cath of about 500 ccs today. Past Med Surg Social Fam HX - Past Medical History Medical history: hyperlipidemia, hypertension, TIA Additional medical history: BPH Psychiatric history: depression - Social History Smoking Status: Former smoker Smokeless Tobacco Status: No Alcohol use: none Drug use: none - Family History Mother Adopted: No Living Status: Hx Family Cardiac Disorders: Yes Father Adopted: No Living Status: Hx Family Cardiac Disorders: Yes Medications and Allergies Buspirone HCl [Buspar] 10 mg PO BID 09/13/18 [History] Lisinopril/Hydrochlorothiazide [Zestoretic 20-25 mg Tablet] 1 tab PO DAILY 09/13/18 [History] Multivit-Min/FA/Lycopen/Lutein [A Thru Z Select Men 50+ Tablet] 1 tab PO DAILY 09/13/18 [History] Pravastatin Sodium [Pravachol] 40 mg PO QPM 09/13/18 [History] Sertraline [Zoloft] 50 mg PO DAILY 09/13/18 [History] Tamsulosin [Flomax] 0.4 mg PO DAILY 09/13/18 [History] Allergy/AdvReac Type Severity Reaction Status Date / Time No Known Allergies Allergy Verified 09/20/18 13:59 Review of Systems ROS unobtainable: due to mental status All Systems review (narrative): Pt is alert and oriented, but is not participating in the conversation much. Exam - Vital Signs Vital signs: Initial Vital Signs Temp Pulse Resp BP Pulse Ox 99.2 F 103 16 129/73 98 09/20/18 11:10 09/20/18 11:10 09/20/18 11:10 09/20/18 11:10 09/20/18 11:10 Vital Signs - Last 8 Hours Temp Pulse Resp BP Pulse Ox 09/21/18 11:00 98.2 F 95 18 124/70 96 Intake and Output 09/20/18 09/21/18 09/21/18 23:59 07:59 15:59 Intake Total 1240 / 1240 1120 / 1120 1000 / 1000 Output Total 500 / 500 Balance 1240 / 1240 1120 / 1120 500 / 500 Intake: IV Fluids 1000 / 1000 1000 / 1000 1000 / 1000 0.9 % Sodium Chloride 1,000 ML 1000 / 1000 1000 / 1000 1000 / 1000 @ 100 mls/hr IVC .Q10H [facility] Rx#: [id number] Oral 240 / 240 120 / 120 Output: Straight Cath 500 / 500 Other: Meal Dinner Percent of Meal Consumed 25% # Voids 1 Weight 74.2 kg Patient Weight 09/21/18 23:59 Weight 74.2 kg - General Appearance General appearance: well-developed, well-nourished EENT: ATNC, hearing intact, vision intact Neck: supple Respiratory: clear Cardiology: no edema, normal S1, normal S2 Gastrointestinal: normoactive bowel sounds, no tenderness, no guarding Integumentary: no rash, warm and dry Neurologic: alert and oriented x3 Psychiatric: mood/affect appropriate, cooperative Results - Lab Results 09/20/18 11:53 09/21/18 13:28 Most recent lab results Calcium 9.1 mg/dL (8.6-10.3) 09/21/18 01:45 Magnesium 1.5 mg/dL (1.6-2.6) L 09/21/18 01:45 Urine Sodium 63.5 mEq/L 09/20/18 16:30 Consult Discharge Plan - Plan Additional Instructions: Recommmend [facility] once medically stable. D/C sitter Referrals: Chandana Vasquez MD [Primary Care Provider] -
--- NOTE | 2018-09-21 21:15 | Electrocardiograph Report ---
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
[2018-09-21] MEDS: ARIPiprazole 2 MG TABLET PO SCH (22:01)
[2018-09-22 01:34] LABS: BUN/Creatinine Ratio 13 (6-26); Blood Urea Nitrogen 7 mg/dL (8-23); Calcium 8.7 mg/dL (8.6-10.3); Carbon Dioxide 19 mEq/L (23-29); Chloride 94 mEq/L (98-107); Glucose 105 mg/dL (70-105); Magnesium 1.5 mg/dL (1.6-2.6); Osmolality,Calculated 264 (280-300); Potassium 3.2 mEq/L (3.5-5.1); Sodium 128 mEq/L (136-145); eGFR For Non-African Americans > 60 (> 60)
[2018-09-22] MEDS: 0.9 % Sodium Chloride 1,000 ML IVC SCH ×2 (02:52→12:41)
[2018-09-22] MEDS: *HR* Enoxaparin 40 MG/0.4 ML SYRINGE SQ SCH (05:04)
[2018-09-22] MEDS: Multivit/Ca/Min/Fe/FA 1 TAB TABLET PO SCH (08:13)
[2018-09-22] MEDS: Lisinopril 20 MG TABLET PO SCH (08:13)
--- NOTE | 2018-09-22 08:46 | Nephrology Progress Note ---
Date of Encounter: 09/22/18 Time of Encounter: 10:35 - Assessment and Plan (1) Hyponatremia Current Visit: Yes Status: Acute Initial NA was 121 and is now 128. May add Sodium Chloride tabs today at 1gm po tid. Regular diet with liberalized salt. His U Osmo was not elevated. He was on HCTZ and also has hypokalemia, which I'd recommend replacing. If serum Mg has not been checked, I would recommend that too. Avoid thiazide type diuretics, and be caution with SSRI/SSNRI and AEDs as these can contribute going forward to the hyponatremia. However with his levels still being <130, he remains high risk with a complex E/M and MDM. (2) Hypertension Current Visit: No Status: Acute Stable, and lisinopril is likely okay. However, sometimes even an DREA inhibitor will contribute to a reset Osmostat induced hyponatremia. Qualifiers: Hypertension type: essential hypertension Qualified Code(s): I10 - Essential (primary) hypertension (3) Hyperlipidemia Current Visit: No Status: Chronic Agree with statin therapy. Qualifiers: Qualified Code(s): E78.5 - Hyperlipidemia, unspecified (4) Depression Current Visit: No Status: Acute Per psychiatry. See above regarding SSRIs and etc. Qualifiers: Depression Type: major depressive disorder Major depression recurrence: single episode Active/Remission status: currently active Major depression episode severity: severe Psychotic features: without psychotic features Qualified Code(s): F32.2 - Major depressive disorder, single episode, severe wit hout psychotic features (5) BPH (benign prostatic hyperplasia) Current Visit: Yes Status: Chronic With his history of BPH, sometimes a partial urinary tract obstruction from BPH can contribute to hyponatremia. I noticed he has not had any renal imaging thus far, so I have ordered a retroperitoneal ultrasound with PVR. Qualifiers: Lower urinary tract symptom presence: symptoms present Lower urinary tract symptom detail: incomplete bladder emptying Qualified Code(s): N40.1 - Benign prostatic hyperplasia with lower urinary tract symptoms; R39.14 - Feeling of incomplete bladder emptying Subjective Principal diagnosis: Hyponatremia Interval history: The pt was seen and examined in his 3B room. He reported feeling relatively well, and denied any previous seizures, and also denied consuming frequent beer or other alcohol. He did not report nausea, vomiting, or diarrhea. Objective - Vital Signs Vital signs: Vital Signs Temp Pulse Resp BP Pulse Ox 11/02/18 07:30 98.0 F 89 18 110/68 99 09/22/18 03:41 97.9 F 88 18 123/74 97 09/22/18 03:09 97.8 F 85 20 132/79 97 09/21/18 23:15 97.7 F 93 18 120/75 96 09/21/18 19:05 98.1 F 95 18 136/74 96 09/21/18 16:10 98.4 F 100 18 144/79 97 09/21/18 11:00 98.2 F 95 18 124/70 96 Intake and Output 09/21/18 09/22/18 09/22/18 23:59 07:59 15:59 Intake Total 1000 / 1000 Output Total 680 / 680 450 / 450 Balance 320 / 320 -450 / -450 Intake: IV Fluids 1000 / 1000 0.9 % Sodium Chloride 1,000 ML 1000 / 1000 @ 100 mls/hr IVC .Q10H [facility] Rx#: [id number] Output: Catheter 680 / 680 450 / 450 Coude 250 / 250 Other: Meal Dinner Percent of Meal Consumed 25% Weight 74 kg Blood Glucose* 107 Patient Weight 09/22/18 23:59 Weight 74 kg - General Appearance General appearance: Present: well-developed, well-nourished, appears started age EENT: Present: ATNC, PERRL, mucous membranes moist Neck: Present: supple Respiratory: Present: clear Cardiology: Present: no edema, regular rate, regular rhythm, normal S1, normal S2 Gastrointestinal: Present: normoactive bowel sounds, no tenderness, no guarding Integumentary: Present: no rash, warm and dry Neurologic: Present: no focal deficit, no asterixis, alert and oriented x3 Musculoskeletal: Present: no deformities, no erythema, no cyanosis Psychiatric: Present: mood/affect appropriate, cooperative - Lab 09/20/18 11:53 09/22/18 07:03 Most recent lab results Calcium 8.7 mg/dL (8.6-10.3) 09/22/18 01:02 Magnesium 1.5 mg/dL (1.6-2.6) L 09/22/18 01:02 Urine Sodium 63.5 mEq/L 09/20/18 16:30 Consult Discharge Plan - Plan Additional Instructions: Recommmend pt [facility] once medically [facility]. D/C sitter Referrals: Chandana Vasquez MD [Primary Care Provider] -
--- NOTE | 2018-09-22 16:07 | Internal Med Progress Note ---
Hospitalist Progress Note - Encounter Date of Encounter: 09/22/18 Time of Encounter: 14:00 - Subjective Interval History: Mr. Lozada is a 68 year old male with known past medical history of depression, hypertension, hyperlipidemia and TIAs who was recently admitted in this hospital for severe hyponatremia due to dehydration who left against medical advice since he has to take care of his dying daughter. Pt's primary care doctor did check his BMPP his sodium came back as 118, patient was sent to ER for further care. Patient did mention he had suicidal ideation's couple of times within last one week with a plan killing himself by shooting with the gun. Pt was admitted in the hospital and started on IV hydration. He was also placed on 1: 1 sitter. He is alert, awake and O x 3. Pt states he is feeling little better, denied any CP / SOB. His energy levels also better today. Denied any suicidal ideation - Exam Vitals: Temp Pulse Resp BP Pulse Ox 98.6 F 93 16 128/75 98 09/22/18 15:05 09/22/18 15:05 09/22/18 15:05 09/22/18 15:05 09/22/18 15:05 Exam: Gen: Alert, awake, Oriented to time,place and person Chest: Diminished breath sounds B/L, No wheezing, No crackles, No rales Heart: S1S2+ RRR No murmurs Abd: Soft, NT, BS +, No organomegaly Ext: No edema, pulses are palpable, No calf tenderness Neuro : Benign findings Skin: No rash. Psych: Depressed - Assessment and Plan (1) Hyponatremia Current Visit: Yes Status: Acute Assessment and Plan: his hyponatremia due to dehydration, hypovolemia as well as medication side effe ct with hydrochlorothiazide His sodium improving slowly today @ 128 He looks euvolemic today d/c IVF started him on Na tablets Cont replacing K + and Mg will check BMP, Mg Q12hr now Appreciate nephrology recommendations (2) Depression with suicidal ideation Current Visit: Yes Status: Acute Assessment and Plan: Does have major depression did mention about suicidal ideation with a plan at home Denied any suicidal ideation now Psych consulted.. Pt was started on abilify feeling little better today cont Zoloft and Buspar too (3) Hyperlipidemia Current Visit: No Status: Chronic Assessment and Plan: Resumed home medication (4) Hypertension Current Visit: No Status: Acute Assessment and Plan: Stable blood pressure continue lisinopril holding hydrochlorothiazide (5) DVT prophylaxis Current Visit: No Status: Acute Assessment and Plan: On Lovenox SQ injection - Time Spent with Patient Total time spent is greater than 50% in coordination of care (as documented) at patient's floor/unit and/or counseling patient: Internal Medicine: Result - Labs CBC & Chem 7: 09/20/18 11:53 09/22/18 07:03 Labs: BMP 09/21/18 09/22/18 09/22/18 19:22 01:02 07:03 Sodium 128 L 128 L 128 L Potassium 3.2 L Chloride 94 L Carbon Dioxide 19 L BUN 7 L Creatinine 0.53 L Glucose 105 Calcium 8.7 Consult Discharge Plan - Plan Additional Instructions: [facility] D/C sitter Referrals: Chandana Vasquez MD [Primary Care Provider] - (3) Hyperlipidemia Qualifiers: Qualified Code(s): E78.5 - Hyperlipidemia, unspecified (4) Hypertension Qualifiers: Hypertension type: essential hypertension Qualified Code(s): I10 - Essential (primary) hypertension
[2018-09-22 19:01] LABS: BUN/Creatinine Ratio 16 (6-26); Blood Urea Nitrogen 9 mg/dL (8-23); Calcium 9.1 mg/dL (8.6-10.3); Carbon Dioxide 23 mEq/L (23-29); Chloride 98 mEq/L (98-107); Glucose 107 mg/dL (70-105); Magnesium 2.1 mg/dL (1.6-2.6); Osmolality,Calculated 269 (280-300); Potassium 3.5 mEq/L (3.5-5.1); Sodium 130 mEq/L (136-145); eGFR For Non-African Americans > 60 (> 60)
[2018-09-22] MEDS: ARIPiprazole 2 MG TABLET PO SCH (20:08)
[2018-09-23 04:59] LABS: BUN/Creatinine Ratio 22 (6-26); Blood Urea Nitrogen 11 mg/dL (8-23); Carbon Dioxide 23 mEq/L (23-29); Chloride 100 mEq/L (98-107); Glucose 100 mg/dL (70-105); Magnesium 1.9 mg/dL (1.6-2.6); Osmolality,Calculated 271 (280-300); Potassium 3.5 mEq/L (3.5-5.1); Sodium 131 mEq/L (136-145); eGFR For Non-African Americans > 60 (> 60)
--- NOTE | 2018-09-23 05:11 | Event Note ---
Date of Encounter: 09/23/18 Time of Encounter: 05:09 Nephrology Chart Review/Update His hyponatremia is nicely and slowly (i.e., safely) correcting. He is now at lower risk with a PNa >130, so will sign-off. Thank you for having consulted with [facility].
[2018-09-23] MEDS: *HR* Enoxaparin 40 MG/0.4 ML SYRINGE SQ SCH (06:38)
[2018-09-23] MEDS: Multivit/Ca/Min/Fe/FA 1 TAB TABLET PO SCH (07:46)
[2018-09-23] MEDS: Lisinopril 20 MG TABLET PO SCH (07:46)
--- NOTE | 2018-09-23 11:16 | Internal Med Progress Note ---
<LuisCt M - Last Filed: 09/23/18 11:18> Hospitalist Progress Note - Encounter Date of Encounter: 09/23/18 - Exam Vitals: Temp Pulse Resp BP Pulse Ox 97.6 F 69 16 132/62 96 09/23/18 07:30 09/23/18 07:30 09/23/18 07:30 09/23/18 07:30 09/23/18 07:30 - Assessment and Plan (1) Hyponatremia Current Visit: Yes Status: Acute (2) Hypertension Current Visit: No Status: Acute (3) Hyperlipidemia Current Visit: No Status: Chronic (4) DVT prophylaxis Current Visit: No Status: Acute (5) Depression with suicidal ideation Current Visit: Yes Status: Acute - Time Spent with Patient Total time spent is greater than 50% in coordination of care (as documented) at patient's floor/unit and/or counseling patient: Internal Medicine: Result - Labs CBC & Chem 7: 09/20/18 11:53 09/23/18 04:13 Labs: BMP 09/22/18 09/23/18 18:20 04:13 Sodium 130 L 131 L Potassium 3.5 3.5 Chloride 98 100 Carbon Dioxide 23 23 BUN 9 11 Creatinine 0.57 L 0.49 L Glucose 107 H 100 Calcium 9.1 9.0 - Impressions Impressions Retroperitoneum Ultrasound 09/22/18 15:37 IMPRESSION: 1. Bilateral renal cysts measuring up to 3.8 cm. 2. Enlarged prostate. 3. Bladder is decompressed by a Adkins catheter. D/ / Carter Kim MD / Carter Kim MD Interpreting Provider: Carter Kim MD Consult Discharge Plan - Plan Additional Instructions: [facility] D/C sitter Referrals: Chandana Vasquez MD [Primary Care Provider] - - Attending Attestation I examined this patient and my medical decision-making was reviewed with the Resident Physician Dr Corona. I agree with the documented findings, disposition and treatment plan as described except to the extent set forth below/addl details below Mr Lozada is admitted for hyponatremia. He is followed by neprhology and is correcting sodium at appropriate rate. He made note of suicidal ideation this admission and has been seen by psychiatry. awake, pleasant and denies any complaints. denies confusion, lightheadedness, nausea, emesis or weakness. He mentioned tremor to resident which was evident at rest and on exam to him, bu t did not mention it in my assessment and was not noted at rest. No si. gen- alert, awake,appears stated age eyes- pupils equal round cv- reg rate and rhythm, normal s1,s2, no murmurs appreciated lungs- ctabl, no wheezing, rhonchi or crackles, normal resp effort on ra neuro- AAOx3, CN grossly intact, no tremor evident at rest on this exam Hyponatremia,due to dehydration, hypovolemia as well as medication side effect with hydrochlorothiazide - correction at appropraite rate, up to 131 - nephro recs appreciated -cont nacl po and daily bmp Depression with SI, SI since resolved -psychiatry following- started on ability and SSRI cont (will need to use caution as could affect hyponatremia moving foward as noted by nephro) -obs note states sandra as potential dc but noted in psych note 09/21 is that pt was encouarged to partake in group or individual therapy and no mention of inpt psych palcement, with sitter being discontinued at that time. -I have reached out to SW to obtain information regarding in process dispo plan- this is a dc to home, cleared by psych, refused SW offer for addl resources to outpt mental health therapy and o to dc to home when med clear -cont current meds HTN. stable- holding HCTZ, cont acei, cont to monitor, will require outpt fu upon dc Additional diagnoses and plan as per resident note <Adryan Corona T - Last Filed: 09/23/18 17:24> Hospitalist Progress Note - Encounter Date of Encounter: 09/23/18 Time of Encounter: 12:00 - Subjective Interval History: Sitting on edge of bed eating breakfast. No complaints today. Says L arm tremor has been going on for week. Denies cp, sob, dizzy, lightheaded, N/V, weakness, confusion, or syncope. - Exam Vitals: Temp Pulse Resp BP Pulse Ox 97.6 F 69 16 132/62 96 1103/18 07:30 09/23/18 07:30 09/23/18 07:30 09/23/18 07:30 09/23/18 07:30 Exam: Gen: AOx3, awake, no acute distress or signs toxicity Chest: Symmetric chest rise, non tender Heart: RRR, S1/S2+ no murmurs, rubs, gallops appreciated, radial pulse 2+ bilat, no edema Resp: Normal resp effort, CTAB, no wheezes, rhonchi, rales appreciated Abd: Soft, NT, BS +, No organomegaly Neuro : L arm tremor at rest during hx and increased with extension, CN grossly intact Skin: No rash. - Assessment and Plan (1) Hyponatremia Current Visit: Yes Status: Acute Assessment and Plan: Hyponatremia due to dehydration, hypovolemia as well as medication side effect with hydrochlorothiazide Na corrected to 131 today Neph signed off IVF stopped Na tablets Cont replacing K + and Mg Cont monitor electrolytes (2) Depression with suicidal ideation Current Visit: Yes Status: Acute Assessment and Plan: Psych following SI resolved aripiprazole and sertraline continued neph note cautions SSRI use with hyponatremia psych cleared to dc home with outpt therapy at dc (3) Hypertension Current Visit: No Status: Acute Assessment and Plan: Stable blood pressure, most recent 126/71 continue lisinopril continue holding hydrochlorothiazide recommend fu with PCP at discharge for antihypertensive management (4) Hyperlipidemia Current Visit: No Status: Chronic Assessment and Plan: Continued statin DVT Prophylaxis: enoxaparin - Time Spent with Patient Total time spent is greater than 50% in coordination of care (as documented) at patient's floor/unit and/or counseling patient: less than 15 minutes Plan of Care Discussed with: patient Internal Medicine: Result - Labs CBC & Chem 7: 09/20/18 11:53 09/23/18 04:13 Labs: BMP 09/22/18 09/23/18 18:20 04:13 Sodium 130 L 131 L Potassium 3.5 3.5 Chloride 98 100 Carbon Dioxide 23 23 BUN 9 11 Creatinine 0.57 L 0.49 L Glucose 107 H 100 Calcium 9.1 9.0 - Impressions Impressions Retroperitoneum Ultrasound 09/22/18 15:37 IMPRESSION: 1. Bilateral renal cysts measuring up to 3.8 cm. 2. Enlarged prostate. 3. Bladder is decompressed by a Adkins catheter. D/ / Carter Kim MD / Carter Kim MD Interpreting Provider: Carter Kim MD <Ct Smith - Last Filed: 09/23/18 11:18> (2) Hypertension Qualifiers: Hypertension type: essential hypertension Qualified Code(s): I10 - Essential (primary) hypertension (3) Hyperlipidemia Qualifiers: Qualified Code(s): E78.5 - Hyperlipidemia, unspecified <Adryan Corona - Last Filed: 09/23/18 17:24> (3) Hypertension Qualifiers: Hypertension type: essential hypertension Qualified Code(s): I10 - Essential (primary) hypertension (4) Hyperlipidemia Qualifiers: Qualified Code(s): E78.5 - Hyperlipidemia, unspecified
[2018-09-23] MEDS: ARIPiprazole 2 MG TABLET PO SCH (20:45)
[2018-09-24 05:44] LABS: BUN/Creatinine Ratio 28 (6-26); Blood Urea Nitrogen 14 mg/dL (8-23); Calcium 8.7 mg/dL (8.6-10.3); Carbon Dioxide 26 mEq/L (23-29); Chloride 98 mEq/L (98-107); Glucose 96 mg/dL (70-105); Magnesium 1.5 mg/dL (1.6-2.6); Osmolality,Calculated 270 (280-300); Potassium 3.4 mEq/L (3.5-5.1); Sodium 130 mEq/L (136-145); eGFR For Non-African Americans > 60 (> 60)
[2018-09-24] MEDS: *HR* Enoxaparin 40 MG/0.4 ML SYRINGE SQ SCH (05:58)
[2018-09-24] MEDS: Multivit/Ca/Min/Fe/FA 1 TAB TABLET PO SCH (07:28)
[2018-09-24] MEDS: Lisinopril 20 MG TABLET PO SCH (07:28)
--- NOTE | 2018-09-24 08:26 | Discharge Summary ---
<Adryan Corona - Last Filed: 09/24/18 12:58> - NOTES TO OUTPATIENT PROVIDER Notes to Outpatient Provider: Admitted with hyponatremia and SI on 09/20/18. Na 118 on admission, corrected to 130 with IVF and salt tablets. Alan placed for BPH. He was evaluated by psych for SI and diagnosed with major depressive d isorder, started aripiprazole and sertraline. SI resolved and psych recommended outpt therapy but he refused all resources when offered. HCTZ held at or and will need antihypertensive med management at PCP followup. Post void residual 250mL after alan removal, will need urology referral after PCP fu, tamsulosin increased to BID. He is being dc with salt tablets and will need BMP recheck of Na in 1 week with PCP and will followup with Dr Tapia in 2-4 weeks after dc. Date of Encounter: 09/24/18 Time of Encounter: 09:25 - Discharge Diagnosis (1) Hyponatremia Priority: Primary Status: Acute Assessment and Plan: Hyponatremia due to dehydration, hypovolemia as well as medication side effect with hydrochlorothiazide Na corrected to 130 today Neph signed off IVF stopped Na tablets Cont replacing K + and Mg Cont monitor electrolytes Salt tablets at or, fu with PCP in 1 week for Na check, and fu with Dr Tapia in 2-4 weeks. (2) Hypertension Priority: Secondary Status: Acute Assessment and Plan: Stable blood pressure, most recent 114/71 continue lisinopril continue holding hydrochlorothiazide recommend fu with PCP at discharge for antihypertensive management Qualifiers: Hypertension type: essential hypertension Qualified Code(s): I10 - Essential (primary) hypertension (3) Hyperlipidemia Priority: Secondary Status: Chronic Assessment and Plan: Continued statin Qualifiers: Qualified Code(s): E78.5 - Hyperlipidemia, unspecified (4) Depression with suicidal ideation Priority: Secondary Status: Acute Assessment and Plan: Psych following SI resolved aripiprazole and sertraline continued neph note cautions SSRI use with hyponatremia psych cleared to or home with outpt therapy at or He refused all resources when offered (5) BPH (benign prostatic hyperplasia) Priority: Secondary Status: Chronic Assessment and Plan: Hx of BPH Alan placed with good urine output on as BPH with partial obstruction can cause hyponatremia Retroperitoneal US with bilateral renal cysts measuring up to 3.8 cm. Enlarged prostate. Bladder is decompressed by a Alan catheter. Alan removed prior to dc Qualifiers: Lower urinary tract symptom presence: symptoms present Lower urinary tract symptom detail: incomplete bladder emptying Qualified Code(s): N40.1 - Benign prostatic hyperplasia with lower urinary tract symptoms; R39.14 - Feeling of incomplete bladder emptying Hospital course: Mr. Lozada is a 68 year old male who was recently admitted in this hospital for severe hyponatremia due to dehydration who left against medical advice since he has to take care of his dying daughter. 09/20/18 his primary care doctor did check his BMP his sodium came back as 118, he was sent to ED for further care. Within the ED he complained about being lethargic, weak, and tired all the time last couple of weeks prior to arrival. His oral intake was also diminished from feeling nauseated. He appeared severely depressed, suddenly became tearful about his daughter's situation on hospice. He mentioned he had suicidal ideation's a couple of times within last one week prior to arrival with a plan killing himself by shooting with a gun. He was admitted for hyponatremia and suicidal ideation. Hyponatremia was due to dehydration, hypovolemia as well as medication side effect with hydrochlorothiazide. Received total of 5L IVF during stay, neph consulted and started alan for BPH, salt tablets with Na correcting to 130 at which time they signed off. Mg and K were repleted multiple times during stay. Post void residual of 250ml after alan removal, continued BID dosing tamsulosin and recommend outpt referral to urology after dc. Psych evaluated him and diagnosed major depressive disorder. SI resolved, aripiprazole and sertraline started, neph cautions SSRI use with hyponatremia, psych cleared to or home with outpt therapy at or. Alan removed on 09/24/18. He will be discharged with salt tablets, recommended followup with PCP in 1 week and nephrology followup in 2-4 weeks after discharge. Psych recommends outpatient followup and therapy. Discharge discussed with: patient - Time Spent with Patient Total time spent providing and/or coordinating discharge services: Less than 30 minutes - Discharge Medications Prescriptions: ARIPiprazole [Abilify] 2 mg PO HS 30 Days #30 tablet Lisinopril [Zestril] 20 mg PO DAILY 30 Days #30 tablet Sodium Chloride [Sodium Chloride Tab] 1 gm PO TID 30 Days #90 tablet Tamsulosin [Flomax] 0.4 mg PO BID 30 Days #60 capsule Home Medications: Buspirone HCl [Buspar] 10 mg PO BID 09/13/18 [History] Multivit-Min/FA/Lycopen/Lutein [A Thru Z [employer] Men 50+ Tablet] 1 tab PO DAILY 09/13/18 [History] Pravastatin Sodium [Pravachol] 40 mg PO QPM 09/13/18 [History] Sertraline [Zoloft] 50 mg PO DAILY 09/13/18 [History] ARIPiprazole [Abilify] 2 mg PO HS 30 Days #30 tablet 09/24/18 [Rx] Lisinopril [Zestril] 20 mg PO DAILY 30 Days #30 tablet 09/24/18 [Rx] Sodium Chloride [Sodium Chloride Tab] 1 gm PO TID 30 Days #90 tablet 09/24/18 [Rx] Tamsulosin [Flomax] 0.4 mg PO BID 30 Days #60 capsule 09/24/18 [Rx] Allergies/Adverse Reactions: Allergy/AdvReac Type Severity Reaction Status Date / Time No Known Allergies Allergy Verified 09/20/18 13:59 Date of admission: 09/20/18 15:36 Primary care physician: Chandana Vasquez MD Consults: 09/20/18 14:04 Consult to Nephrology [CONS] Stat Consulting Provider: Kidney Katja/FLASH/ANNA MARIE/SHIRLEY Reason for Consult: Acute hyponatremia Time Notified: 14:05 Call Completed: Yes 09/20/18 14:33 Consult to Psychiatry [CONS] Routine Consulting Provider: Psychiatry Katja Reason consult: Sitter/1:1 Other Other reason and/or additional details: Suicidal ideation Colwyn Slip initiated date and time: 09/20/18 @ 2:30 pm Time Notified: 14:35 Call Completed: Yes 09/21/18 10:34 Consult to Maintenance Scheduler [CONS] Routine Reason for SW Consult: DEPRESSION, SI, COUNSELING SERVICES Discharging clinician: Adryan Corona Anticipated date of discharge: 09/24/18 - Constitutional Vitals: Temp Pulse Resp BP Pulse Ox 98.5 F 85 17 114/71 98 09/24/18 07:13 09/24/18 07:13 09/24/18 07:13 09/24/18 07:13 09/24/18 07:13 Exam: Gen: AOx3, awake, no acute distress or signs toxicity Chest: Symmetric chest rise, non tender Heart: RRR, S1/S2+ no murmurs, rubs, gallops appreciated, radial pulse 2+ bilat, no edema Resp: Normal resp effort, CTAB, no wheezes, rhonchi, rales appreciated Abd: Soft, NT, BS +, No organomegaly Neuro: CN grossly intact, no focal deficits Skin: No rash. - Patient Status Disposition: Home, Self-Care Condition: Good Functional capacity at discharge: independent ambulation Overall status at discharge: patient is progressing back to baseline - Discharge Instructions Instructions: Lisinopril (By mouth), Tamsulosin (By mouth), Aripiprazole (By mouth) Follow Up With: Daljit Tapia DO [Partnered Physician] - (YOUR APPOINTMENT HAS BEEN REQUESTED. OUR OFFICES WILL CALL YOU WITH AN APPOINTMENT TIME AND DATE.) Chnadana Vasquez MD [Primary Care Provider] - (YOUR APPOINTMENT HAS BEEN REQUESTED. OUR OFFICES WILL CALL YOU WITH AN APPOINTMENT TIME AND DATE.) - Diet and Activity Activity: increase activity as tolerated, resume usual activities as tolerated Diet: regular diet (extra salt ) <Ct Smith - Last Filed: 09/24/18 13:48> Date of Encounter: 09/24/18 - Discharge Diagnosis (1) Hyponatremia Status: Acute (2) Hypertension Status: Acute Qualifiers: Hypertension type: essential hypertension Qualified Code(s): I10 - Essential (primary) hypertension (3) Hyperlipidemia Status: Chronic Qualifiers: Qualified Code(s): E78.5 - Hyperlipidemia, unspecified (4) Depression with suicidal ideation Status: Acute (5) BPH (benign prostatic hyperplasia) Status: Chronic Qualifiers: Lower urinary tract symptom presence: symptoms present Lower urinary tract symptom detail: incomplete bladder emptying Qualified Code(s): N40.1 - Benign prostatic hyperplasia with lower urinary tract symptoms; R39.14 - Feeling of incomplete bladder emptying Hospital course: Mr. Lozada is a 68 year old male - Time Spent with Patient Total time spent providing and/or coordinating discharge services: Date of admission: 09/20/18 15:36 Primary care physician: Chandana Vasquez MD Consults: 09/20/18 14:04 Consult to Nephrology [CONS] Stat Consulting Provider: Kidney Katja/FLASH/ANNA MARIE/SHIRLEY Reason for Consult: Acute hyponatremia Time Notified: 14:05 Call Completed: Yes 09/20/18 14:33 Consult to Psychiatry [CONS] Routine Consulting Provider: Psychiatry Katja Reason consult: Sitter/1:1 Other Other reason and/or additional details: Suicidal ideation Colwyn Slip initiated date and time: 09/20/18 @ 2:30 pm Time Notified: 14:35 Call Completed: Yes 09/21/18 10:34 Consult to Maintenance Scheduler [CONS] Routine Reason for SW Consult: DEPRESSION, SI, COUNSELING SERVICES - Constitutional Vitals: Temp Pulse Resp BP Pulse Ox 98.3 F 72 16 129/74 95 09/24/18 12:16 09/24/18 12:16 09/24/18 12:16 09/24/18 12:16 09/24/18 12:16 - Attending Attestation I examined this patient and my medical decision-making was reviewed with the Resident Physician Dr Corona. I agree with the documented findings, disposition and treatment plan as described except to the extent set forth below/addl details below Mr Lozada is admitted for hyponatremia. He was followed by neprhology and corrected sodium at appropriate rate to 130 at time of dc. Discharge was discussed with nephrology 09/24 and dc recommendations for salt tabs and fu /fu labs given. He made note of suicidal ideation this admission related to his daug hter whom is currently in hospice care and near . He was seen by psychiatry. He was diagnosed with depression, med adjustments initiated and cleared for dc to home with rec for outpt therapy. I discussed dc recs with SW and pt did meet with SW but declined resources for outpt services and will fu with his pcp instead. On day of dc he was foraward thinking, requesting dc to go be with his daughter, denying any thoughts, plan or intent of self harm, noting he has " a family to take care of". In regards to his bph, he had alan cath this admit, increased flomax dosing, alan removed prior to dc with good urine output and borderline pvr. Pt educated as to signs of retention, given rx for new flomax dose and promised to follow up closely with pcp for urology referral. awake, pleasant and denies any complaints. no confusion, presyncope or weakness. He has been requesting urgent dc to home since yesterday to go be with his dying daughter. Given he is high risk for ama discharge and hoping to ensure appropirate meds and fu at dc, call was made this morning to nephrology who agreed he was stable for dc to home. Pt very happy about this this morning. He denies any si, plan or intent. Notes he has "a family to take care of" as the reason why he would not ever really harm himself. agreeable to staying for voiding trial. Given that he has not seen urology this admit with no fu in place, we considered him to high risk to leave with alan for fear he would not follow up and he may develop infection. After alan removal he had multiple voids with PVR not greater than 250 cc. gen- alert, awake,appears stated age cv- reg rate and rhythm, normal s1,s2, no murmurs appreciated lungs- ctabl, no wheezing, rhonchi or crackles, normal resp effort on ra neuro- AAOx3, CN grossly intact, no tremor Hyponatremia,due to dehydration, hypovolemia as well as medication side effect with hydrochlorothiazide - correction at appropraite rate, up to 130 - nephro contacted this morning and cleared for dc to home -cont nacl po , nephro fu, bmp outpt Depression with SI, SI since resolved -psychiatry followed- started on ability and SSRI cont (will need to use caution as could affect hyponatremia moving foward as noted by nephro) -obs note states geripsych as potential dc but noted in psych note 09/21 is that pt was encouarged to partake in group or individual therapy and no mention of inpt psych palcement, with sitter being discontinued at that time. -I reached out to SW 09/23 to obtain information regarding in process dispo plan- this is a dc to home, cleared by psych, refused SW offer for addl resources to outpt mental health therapy and ok to dc to home when med clear with pcp fu -cont current meds on dc HTN. normotensive- holding HCTZ on dc, cont acei, will require outpt fu upon dc BPH- cont increased flomax dosing, voiding trial prior to dc with pvr not greater than 250 and good urine outpt, he is too high risk to not follow up to dc with alan cath in place and no established urologic care, pt will fu with pcp for urology referral and counselled on signs/symptoms of urinary retention and to contact pcp if developed Additional diagnoses and plan as per resident note Addendum entered and electronically signed by Ct Smith DO 09/24/18 13:49: Hypomagnesemia- repleted IV prior to dc
[2018-09-24 12:17] VITALS: BP 129/74
== END 2018-09-24 14:20 | disposition home or self-care (01) | DRG 641 ==
LOC: EMEROOARM 11:07 → 3BNU 11:07 → SUATTDRO 15:36
PROVIDERS: ADMIT Internal Medicine; ATTEND Internal Medicine

== ENCOUNTER 2020-08-09 12:55 | Observation (INO) ==
[2020-08-09] MEDS ORDERED: 0.9 % Sodium Chloride 1,000 ML IVC ONE (13:19)
[2020-08-09 14:10] LABS: Prothrombin Time 11.5 Seconds (9.4-12.1)
[2020-08-09 14:23] LABS: Bilirubin,Urine Negative (Negative); Blood,Urine Negative (Negative); Clarity,Urine Clear (Clear); Color,Urine Colorless (Yellow); Glucose,Urine (UA) Normal (Normal); Ketones,Urine Negative (Negative); Leukocyte Esterase,Urine Negative (Negative); Nitrite,Urine Negative (Negative); Protein,Urine Negative (Neg-Trace); Specific Gravity,Urine 1.015 (1.010-1.025); Urobilinogen,Urine Normal (Normal)
[2020-08-09 14:28] LABS: Alanine Aminotransferase 14 Units/L (7-52); Albumin 4.2 g/dL (3.5-5.7); Albumin/Globulin Ratio 1.4 (1.1-2.2); Alkaline Phosphatase 68 Units/L (34-104); Aspartate Amino Transferase 15 Units/L (13-39); BUN/Creatinine Ratio 27 (6-26); Bilirubin,Direct 0.1 mg/dL (0.0-0.2); Bilirubin,Indirect 0.2 mg/dL (0.0-1.0); Bilirubin,Total 0.3 mg/dL (0.3-1.0); Blood Urea Nitrogen 17 mg/dL (8-23); Calcium 9.4 mg/dL (8.6-10.3); Carbon Dioxide 25 mEq/L (23-29); Chloride 105 mEq/L (98-107); Glucose 128 mg/dL (70-105); Magnesium 1.9 mg/dL (1.6-2.6); Osmolality,Calculated 287 (280-300); Potassium 4.4 mEq/L (3.5-5.1); Sodium 137 mEq/L (136-145); Total Protein 7.2 g/dL (6.4-8.9); Troponin I < 0.03 ng/mL (< 0.04); eGFR For African Americans > 60 (> 60); eGFR For Non-African Americans > 60 (> 60)
[2020-08-09 15:30] LABS: Basophils % 0.3 %; Eosinophils # 0.1 K/mcL (0.0-0.6); Eosinophils % 0.8 %; Hematocrit 37.4 % (37.5-50.1); Hemoglobin 11.8 g/dL (12.9-16.9); Immature Granulocytes % 0.3 % (0-4); Lymphocytes # 1.3 K/mcL (0.6-4.6); Lymphocytes % 10.5 %; Mean Corpuscular HGB Conc 31.6 g/dL (31.6-35.5); Mean Corpuscular Hemoglobin 29.6 pg (28.0-33.3); Mean Corpuscular Volume 93.7 fL (83.0-100.0); Mean Platelet Volume 10.6 fL (9.4-12.4); Monocytes # 0.7 K/mcL (0.0-1.3); Monocytes % 5.6 %; Platelet Count 275 K/mcL (140-400); Red Blood Count 3.99 M/mcL (4.19-5.50); Red Cell Distribution Width 13.9 % (11.5-14.5); Segmented Neutrophils % 82.5 %; White Blood Count 12.1 K/mcL (4.3-11.1)
[2020-08-09] MEDS ORDERED: Naloxone 0.4 MG/ML INJ IVP PRN (16:30)
[2020-08-09] MEDS: Apixaban 5 MG TABLET PO SCH (20:17)
[2020-08-10 02:58] LABS: Basophils # 0.1 K/mcL (0.0-0.2); Basophils % 0.7 %; Eosinophils # 0.1 K/mcL (0.0-0.6); Eosinophils % 1.8 %; Hematocrit 33.6 % (37.5-50.1); Hemoglobin 10.8 g/dL (12.9-16.9); Immature Granulocytes % 0.1 % (0-4); Lymphocytes # 1.8 K/mcL (0.6-4.6); Lymphocytes % 24.4 %; Mean Corpuscular HGB Conc 32.1 g/dL (31.6-35.5); Mean Corpuscular Hemoglobin 30.7 pg (28.0-33.3); Mean Corpuscular Volume 95.5 fL (83.0-100.0); Monocytes # 0.8 K/mcL (0.0-1.3); Neutrophils # 4.5 K/mcL (1.6-8.9); Platelet Count 247 K/mcL (140-400); Red Blood Count 3.52 M/mcL (4.19-5.50); Red Cell Distribution Width 14.2 % (11.5-14.5); White Blood Count 7.2 K/mcL (4.3-11.1)
[2020-08-10 03:18] LABS: BUN/Creatinine Ratio 33 (6-26); Blood Urea Nitrogen 20 mg/dL (8-23); Calcium 8.6 mg/dL (8.6-10.3); Carbon Dioxide 22 mEq/L (23-29); Chloride 107 mEq/L (98-107); Glucose 116 mg/dL (70-105); Osmolality,Calculated 290 (280-300); Potassium 3.7 mEq/L (3.5-5.1); Sodium 138 mEq/L (136-145); eGFR For African Americans > 60 (> 60); eGFR For Non-African Americans > 60 (> 60)
[2020-08-10] MEDS: Apixaban 5 MG TABLET PO SCH (09:02)
[2020-08-10] MEDS: DilTIAZem CD (24hr) 120 MG CAP.ER.24H PO SCH (09:03)
[2020-08-10] MEDS ORDERED: Perflutren Lipid Microsphere 1.3 ML in 0.9 % Sodium Chloride 8.7 ML IVP PRN (09:23)
[2020-08-10] MEDS ORDERED: Isovue-370 500 ML BOTTLE IVP ONE (13:36)
[2020-08-11 02:28] LABS: Basophils % 0.4 %; Eosinophils # 0.2 K/mcL (0.0-0.6); Eosinophils % 2.1 %; Hematocrit 35.5 % (37.5-50.1); Hemoglobin 11.5 g/dL (12.9-16.9); Immature Granulocytes % 0.1 % (0-4); Lymphocytes # 1.7 K/mcL (0.6-4.6); Lymphocytes % 21.6 %; Mean Corpuscular HGB Conc 32.4 g/dL (31.6-35.5); Mean Corpuscular Hemoglobin 30.6 pg (28.0-33.3); Mean Corpuscular Volume 94.4 fL (83.0-100.0); Mean Platelet Volume 11.1 fL (9.4-12.4); Monocytes # 0.8 K/mcL (0.0-1.3); Monocytes % 10.4 %; Neutrophils # 5.2 K/mcL (1.6-8.9); Platelet Count 282 K/mcL (140-400); Red Blood Count 3.76 M/mcL (4.19-5.50); Red Cell Distribution Width 13.9 % (11.5-14.5); Segmented Neutrophils % 65.4 %
[2020-08-11 02:46] LABS: BUN/Creatinine Ratio 33 (6-26); Blood Urea Nitrogen 24 mg/dL (8-23); Calcium 8.8 mg/dL (8.6-10.3); Carbon Dioxide 24 mEq/L (23-29); Chloride 108 mEq/L (98-107); Glucose 97 mg/dL (70-105); Osmolality,Calculated 292 (280-300); Potassium 3.9 mEq/L (3.5-5.1); Sodium 139 mEq/L (136-145); eGFR For African Americans > 60 (> 60); eGFR For Non-African Americans > 60 (> 60)
[2020-08-11] MEDS ORDERED: Regadenoson 0.4 MG/5 ML SYRINGE IVP ONE (05:47)
[2020-08-11 10:24] VITALS: BP 136/76
[2020-08-11] MEDS: DilTIAZem CD (24hr) 120 MG CAP.ER.24H PO SCH (10:28)
[2020-08-11] MEDS ORDERED: metroNIDAZOLE 500 MG TABLET PO SCH (15:00)
[2020-08-11] MEDS ORDERED: Cefdinir 300 MG CAPSULE PO SCH (21:00)
[2020-08-12] MEDS ORDERED: Lactobacillus 1 EACH CAP.SPRINK PO SCH (09:00)
== END 2020-08-11 15:42 | disposition home or self-care (01) ==
LOC: 2ANU 12:55 → EMEROOARM 12:55 → 2ANU 17:41
PROVIDERS: ADMIT Internal Medicine; ATTEND Internal Medicine